=== PATIENT | male | born 1955 | race Caucasian/White ===

== ENCOUNTER 2016-09-01 19:51 | Inpatient (IN) | payer MEDICAID, OTHER ==
[~2016-09-01] VITALS: Ht 177.8 cm; Wt 116.9 kg
[~2016-09-01 19:51] MED LIST: ARIP15TA2 PO; Aspirin PO; CHOL10002 PO; FLUO20CA25 PO; FURO-129 PO; LISI-609 PO; METO25TA3 PO; PRAS10TA5 PO; SIMV40TA2 PO
--- NOTE | 2016-09-01 19:53 | ED.REPORT ---
HPI-Dyspnea / Wheezing Date of Service Sep 01, 2016 ED Provider: Boston MadrigalO. A 61 year old male with a history of hypertension, depression, suicidal ideation , and acute catatonic state presents to the ED via EMS with shortness of breath onset just prior to arrival. The patient is uncooperative and slow to answer questions, only additionally reporting anxiety and abdominal pain. EMS found him to be diaphoretic and tachycardic with O2 sats in the mid 90s. Nursing Notes Stated Complaint: SOB Nursing Notes Reviewed: Yes Allergies: Coded Allergies: clopidogrel (Verified Allergy, Intermediate, 12/05/13) Medical record quetiapine (Verified Allergy, Intermediate, 12/05/13) primary physician medical record rosuvastatin (Verified Allergy, Intermediate, 12/05/13) medical record simvastatin (Verified Allergy, Intermediate, 12/05/13) primary physician medical record codeine (Verified Allergy, Mild, 05/19/09) lisinopril (Verified Adverse Reaction, Severe, 12/05/13) Medical record Scheduled ([Aspirin]) 81 MG TAB.CHEW 81 MG PO DAILY Aripiprazole (Abilify) 15 Mg Tablet 30 MG PO DAILY Fluoxetine (Fluoxetine) 20 Mg Capsule 20 MG PO DAILY depression Furosemide (Lasix) 20 Mg Tablet 20 MG PO DAILY Lisinopril (Zestril) 5 Mg Tablet 5 MG PO DAILY Metoprolol Succinate ER (Toprol XL) 25 Mg Tablet.er 12.5 MG PO DAILY Prasugrel HCl (Effient) 10 Mg Tablet 5 MG PO DAILY Simvastatin (Zocor) 40 Mg Tablet 40 MG PO HS Scheduled PRN Cholecalciferol (Vitamin D3) 1,000 Unit Tablet 2,000 UNIT PO DAILY PRN PRN supplement vitamin D deficiency General Time Seen by MD: 19:53 Chief Complaint Shortness of breath Hx Obtained From: Patient, EMS Unable to Obtain Hx: Uncooperative Arrived By: Ambulance Onset Occurred: Just prior to arrival Symptom Duration: Since onset Associated with: Reports: Anxiety, Diaphoresis, Denies: Fever Pertinent Negative: Relieved by nothing Recent Healthcare: No recent doctor visit Past Medical History Past Medical History Major depressive disorder, with psychotic features Acute catatonic state Suicidal ideation Hypertension Past Surgical History None reported Smoking History Unknown if Ever Smoker Ambulatory Status Independent Review of Systems Unable to Obtain ROS Uncooperative Physical Exam Initial Vital Signs Vital Signs (First) Date Time Temp Pulse Resp B/P Pulse Ox O2 Delivery O2 Flow Rate FiO2 09/01/16 20:00 37.4 124 15 129/67 96 Room Air Initial VS: Reviewed Head / Eyes: Atraumatic, Normocephalic ENT: Conjunctiva normal, No scleral icterus Skin: Warm, Dry General/Constitutional: Awake, Alert Behavior: Positive: Uncooperative Appearance / Presentation: Positive: Obese Respiratory / Chest: Breath sounds NL, Breath sounds = bilat, No respiratory distress Cardiovascular: Regular rhythm, Heart sounds NL Heart Rate / Rhythm: Positive: Tachycardia NEUROLOGIC: Moves all four limbs equally, only minimally answering questions Unable to Evaluate: Positive: Uncooperative Interpretation & Diagnostics INFLUENZA NEGATIVE Lab Results Interpretation Result Diagram: 09/01/16199909/01/161999 Test 09/01/16 20:00 White Blood Count 14.5th/mm3 (3.8-10.1) Red Blood Count 5.56mil/mm3 (4.40-5.80) Hemoglobin 16.2g/dL (13.8-17.2) Hematocrit 45.0% (41.0-50.0) Mean Corpuscular Volume 80.9fL (81-100) Mean Corpuscular Hemoglobin 29.1pg (27.0-35.0) Mean Corpuscular Hemoglobin Concent 36.0% (32.0-37.0) Red Cell Distribution Width 12.9% (12.3-15.4) Platelet Count 194bil/L (150-400) Neutrophils (%) (Auto) 65.0% (40-74) Lymphocytes (%) (Auto) 19.1% (14-46) Monocytes (%) (Auto) 15.3% (4-12) Eosinophils (%) (Auto) 0.3% (0-5) Basophils (%) (Auto) 0.1% (0-3) Prothrombin Time 10.6sec (8.1-12.5) Prothromb Time International Ratio 0.99ratio D-Dimer 0.8mg/L (<0.50) Sodium Level 135mEq/L (134-144) Potassium Level 4.1mEq/L (3.5-5.2) Chloride Level 97mEq/L (97-108) Carbon Dioxide Level 17mmol/L (18-29) Blood Urea Nitrogen 17mg/dL (8-27) Creatinine 0.95mg/dL (0.76-1.27) Estimat Glomerular Filtration Rate 85mL/min (>59) Glucose Level 110mg/dL (60-99) Calcium Level 9.4mg/dL (8.5-10.1) Magnesium Level 2.1mg/dL (1.6-2.6) Total Bilirubin 1.1mg/dL (0.0-1.2) Aspartate Amino Transf (AST/SGOT) 71U/L (0-50) Alanine Aminotransferase (ALT/SGPT) 32U/L (0-44) Alkaline Phosphatase 83U/L (25-160) Troponin T 0.460ug/L (0.0-0.011) Pro-B-Type Natriuretic Peptide 867.8pg/mL (0-210) Total Protein 7.1g/dL (6.4-8.4) Albumin 4.5g/dL (3.4-5.0) Thyroid Stimulating Hormone (TSH) 1.240uIU/mL (0.450-4.500) ECG Interpretation ECG Interpretation: Sinus tachycardia rate 110 Abnormal R-wave progression, early transition Inferior infarct, old Time: 20:44 Interpreted by: ED physician ECG Interpretation: Sinus rhythm rate 94 Abnormal R-wave progression, early transition Inferior infarct, old Same as previous Time: 23:40 Interpreted by: ED physician X-Ray Chest Interpretation Chest Xray Interpretation: IMPRESSION: No acute cardiopulmonary disease. Dictated by: Nick Feliciano M.D. on 09/01/2016 at 20:21 View: Portable, 1 view Interpretation / Wet Read by: Interpret - Radiologist CT Head Interpretation IMPRESSION: No acute intracranial abnormalities. Dictated by: Nick Feliciano M.D. on 09/01/2016 at 21:07 Study: Head CT no contrast Interpretation / Wet Read by: Interpret - Radiologist Re-Eval/Medical Decision Med Decision/Clinical Course I have no idea what is wrong with Trae. He barely answers yes or no questions. He will sometimes whisper that he is at [facility]. He will tell me that he is not having any pain when I ask him to elaborate on what happened today he closed his eyes and turned over and face the opposite side of the room. From what I can gather he called some sort ask a nurse line. They called the medics. He was found to be tachycardic. He was also diaphoretic. He would not give the medics much information. He is not giving me anything whatsoever. His troponin is elevated. His EKG showed tachycardia with Q waves inferiorly. No STEMI. CT scan brain looks normal. I do not find any lateralizing neurologic deficits other than the fact that he cannot or will not talk to me. We are going to treat him with aspirin and beta blockers and heparin. I think he is asked to having a non-STEMI. Doubtful if he is having a stroke because his symptoms seemed to be under his own control. I say that because sometimes he will chat with people when he will not talk to me. Either way he needs to be admitted and this all needs to be sorted out. Re-Evaluation/Progress : Time of Eval: 20:51 Patient Status: Condition improved Re-Evaluation/Progress Note: Informed patient of lab, x-ray, and CT results, diagnosis, and plan for admit. Patient is writhing and glaring. He is oriented to place. It seems he called nursing services who called EMS. Consultation : Referral / Consult Name: Johan Jett MD Consulted With: Hospitalist Call Returned at: 23:36 Rn Hemo Dialysis: Agrees with eval, Agrees with plan, Accepts admit Counseled Regarding: Diagnosis, Lab results, Need for admission Discharge & Departure Impression: Primary Impression: Non-ST elevated myocardial infarction (non-STEMI) Additional Impressions: Aphasia Tachycardia Disposition: ADMITTED TO HOSPITAL Discharge Condition All VS Reviewed: Yes Condition: Stable Referrals: OTHER,PHYSICIAN (PCP) [facility] Karissaibmer Attestation Portions of this note were transcribed by No Jones. I, Dr. Villafuerte, personally performed the history, physical exam, and medical decision-making; I reviewed and confirmed the accuracy of the information in the transcribed note. Signed by: Delroy Saeed, 09/02/2016, 00:13 copies to: [facility] Micah Villafuerte DO Sep 01, 2016 19:53 NO JONES Sep 01, 2016 20:21
[2016-09-01 20:00] VITALS: BP 129/67; PULSE 124; RESP 15; O2SAT 96
[2016-09-01] MEDS ORDERED: 0.9% Sodium Chloride 1,000 ML IV ONE (20:00)
[2016-09-01 20:07] LABS: BASOPHILS % (AUTO) 0.1 % (0-3); EOSINOPHILS % (AUTO) 0.3 % (0-5); MONOCYTES % (AUTO) 15.3 % (4-12); Mean Corpuscular Hemoglobin 29.1 pg (27.0-35.0); Mean Corpuscular Volume 80.9 fL (81-100); Platelet Count 194 bil/L (150-400)
[2016-09-01 20:25] LABS: D-DIMER 0.8 mg/L (<0.50); INR 0.99 ratio
--- NOTE | 2016-09-01 20:27 | DRSVH ---
PROCEDURE: X-RAY CHEST ONE VIEW, PORTABLE ([id number]) INDICATIONS: 61 year-old male with dyspnea. TECHNIQUE: One view of the chest was acquired. COMPARISON: [facility], , CHEST 1VW (PORTABLE), 08/18/2010, 13:34. formerly [facility], RG, CHEST 1VW (PORTABLE), 02/21/2006, 13:44. [facility], , CHEST 1VW (PORTABLE), , 13:48. FINDINGS: Surgical changes and devices: None. Lungs and pleura: No pleural effusions or pneumothorax. Lungs are clear. Mediastinum: Mediastinal contours appear normal. Heart size is normal. Bones and chest wall: No suspicious bony lesions. Overlying soft tissues appear unremarkable. IMPRESSION: No acute cardiopulmonary disease. Dictated by: Nick Feliciano M.D. on 09/01/2016 at 20:21 Approved by: Nick Feliciano M.D. on 09/01/2016 at 20:22
[2016-09-01 20:28] LABS: Magnesium 2.1 mg/dL (1.6-2.6)
[2016-09-01 20:36] LABS: TROPONIN T 0.46 ug/L (0.0-0.011)
--- NOTE | 2016-09-01 21:14 | DRSVH ---
PROCEDURE: CT BRAIN WITHOUT CONTRAST ([id number]) INDICATIONS: 61 year-old male with altered mental status. TECHNIQUE: Noncontrast 4.5 mm thick angled axial sections acquired from the foramen magnum to the vertex, with c oronal reformats. COMPARISON: [facility], CT, BRAIN W/O CONTRAST, 08/18/2010, 14:57. [facility], CT, BRAIN W/O CONTRAST, 02/21/2006, 13:05. FINDINGS: Image quality: Excellent. CSF spaces: Basal cisterns are patent. No extra-axial fluid collections. Ventricles are normal in size and shape. Brain: No midline shift. No intracranial masses or hemorrhage. Cadena-white matter interface is norm al. Skull and face: Calvarium and visualized facial bones are intact, without suspicious lesions. Sinuses: Visualized sinuses and mastoids are clear. IMPRESSION: No acute intracranial abnormalities. Dictated by: Nick Feliciano M.D. on 09/01/2016 at 21:07 Approved by: Nick Feliciano M.D. on 09/01/2016 at 21:08
[2016-09-01] MEDS ORDERED: MeTOProlol 1 mg/mL 5 mL Inj IVPUSH SCH (23:20)
[2016-09-01 23:39] VITALS: BP 157/51; PULSE 116; RESP 12; O2SAT 97
[2016-09-01 23:45] VITALS: BP 127/57; PULSE 93; RESP 12; O2SAT 96
[2016-09-02] VITALS (11 sets, daily range): BP systolic 106–153; BP diastolic 57–101; PULSE 72–111; RESP 12–22; O2SAT 93–98
[2016-09-02] MEDS: Heparin 25K Unit/500mL 0.45 NS 25,000 UNIT in IV Premix 1 EACH IV SCH ×2 (00:24→21:09)
[2016-09-02] MEDS: Heparin 5,000 Unit/mL Inj IVPUSH PRN ×3 (00:24→15:22)
[2016-09-02] MEDS ORDERED: Senna-Docusate 8.6-50 mg Tablet PO PRN (00:35)
[2016-09-02] MEDS ORDERED: Polyethylene Glycol (PEG) 17 Gm Powder PO PRN (00:35)
[2016-09-02] MEDS ORDERED: Ondansetron 2 mg/mL 2 mL Inj IVPUSH PRN (00:35)
--- NOTE | 2016-09-02 01:54 | NUR ---
admit: pt arrived to floor via ER gurney. pt mostly non responsive, will answer some yes or no questions. pt appears to be uncomfortable, but denies pain. pt with labored breathing, restless in bed, appeared to be diaphoretic. STAT EKG done. Nitro given, 2LO2 NC place. pt is resting in bed at this time. Heparin gtt infusing at 1000units/hr (started in ER). will continue to monitor.
[2016-09-02 02:36] LABS: BASOPHILS % (AUTO) 0.2 % (0-3); EOSINOPHILS % (AUTO) 0.2 % (0-5); MONOCYTES % (AUTO) 14.5 % (4-12); Mean Corpuscular Hemoglobin 29.4 pg (27.0-35.0); NEUTROPHILS % (AUTO) 72.8 % (40-74); Platelet Count 156 bil/L (150-400)
--- NOTE | 2016-09-02 03:03 | PCM.HPMED ---
Subjective Date of Service Sep 02, 2016 Primary Provider: Admitting Physician: Johan Jett MD Primary Care Physician: Other,Physician Attending Physician: Johan Jett MD Chief Complaint: Shortness of breath History of Present Illness: Patient is a 61-year-old male with hypertension, major depressive disorder with history of suicidal ideation presenting with shortness of breath. The little history obtained was primarily through the ED physician as the patient offers minimal insight about the events leading up to his hospitalization. Not much can be elicited from him. When I initially saw the patient he was standing in the exam room and requesting to use the restroom. A urinal was provided and the patient was able to get back into bed without issue. Per ED physician, the patient had called a nurse triage line with complaints of shortness of breath. The patient was reportedly quiet on the line and not answering questions, which prompted the triage nurse to summon EMS, who found the patient diaphoretic and tachycardic. At time of my visit, the patient indicated that he called the nurse triage line due shortness of breath, which he reports stemmed from extreme stress, though he will not elaborate. He denies chest pain or any other type pain; no fevers or chills. Shortness of breath has resolved at the time of my visit. He otherwise did not offer much else in terms of history. Of note, the patient was hospitalized in 2013 for depression with psychosis requiring inpatient treatment. Troponin elevated at 0.460. EKG shows sinus tachycardia with HR 110, no ST- elevation or depressions. Vitals in the ED: temp 37.4, HR 93, RR 12 satting 96% on room air, BP 125/57. Other notable labs: D-dimer 0.8, Pro-BNP 867, WBC 14.5. CT brain negative. CT chest angiogram without evidence of pulmonary embolism. Review of Systems: Unable to obtain in entirety due to uncooperative patient Allergies Coded Allergies: clopidogrel (Verified Allergy, Intermediate, 12/05/13) Medical record quetiapine (Verified Allergy, Intermediate, 12/05/13) primary physician medical record rosuvastatin (Verified Allergy, Intermediate, 12/05/13) medical record simvastatin (Verified Allergy, Intermediate, 12/05/13) primary physician medical record codeine (Verified Allergy, Mild, 05/19/09) lisinopril (Verified Adverse Reaction, Severe, 12/05/13) Medical record Home Medications ASA 81mg daily Lisinopril 2.5mg daily Simvastatin 40mg QHS Fluoxetine 40mg QHS Tamsulosin 0.4mg daily Metoprolol 12.5mg daily Lasix 20mg daily PMH Hypertension Depression History of catatonia Surgical History Unable to obtain Family History Unable to obtain Social History Hx Tobacco Use: No Smoking Status: Unknown if Ever Smoker Exam Vital Signs Vital Sign - Last Date Time Temp Pulse Resp B/P Pulse Ox O2 Delivery O2 Flow Rate FiO2 09/02/16 01:49 98 106/69 09/02/16 01:13 37.1 16 96 Room Air Exam General: No acute distress, well-developed, well-nourished. Not appropriately interactive. Slow to respond or does not respond altogether. HEENT: Normocephalic, atraumatic. External ears without defect. Pupils equal, round, and reactive to light. Anicteric sclerae, moist conjunctivae, and no lid lag. Oropharynx free of erythema and cobble stoning with moist mucosa. Neck: Supple. No lymphadenopathy or thyromegaly. Cardiovascular: Regular rate and rhythm with no murmurs, rubs, or gallops appreciated Pulmonary: Clear to auscultation bilaterally with no crackles, wheezes, or rhonchi. Normal respiratory effort with no use of accessory muscles. Abdomen: Decreased bowel tones. Obese, soft, nontender, nondistended. Extremities: No clubbing, cyanosis, edema, or lymphadenopathy appreciated. Skin: Normal temperature, turgor, and texture; no rash, ulcers, or subcutaneous nodules appreciated. Neurological: Cranial nerves grossly intact. Psychiatric: Strange and ambivalent affect. Alert. Lab and Diagnostics Result Diagram: 09/01/16199909/01/161999 X-Rays, CTs and MRIs Date of Service: 09/01/162055 PROCEDURE: CT BRAIN WITHOUT CONTRAST ([id number]) INDICATIONS: 61 year-old male with altered mental status. TECHNIQUE: Noncontrast 4.5 mm thick angled axial sections acquired from the foramen magnum to the vertex, with coronal reformats. COMPARISON: [facility], CT, BRAIN W/O CONTRAST, 08/18/2010, 14:57. [facility], CT, BRAIN W/O CONTRAST, 02/21/2006, 13:05. FINDINGS: Image quality: Excellent. CSF spaces: Basal cisterns are patent. No extra-axial fluid collections. Ventricles are normal in size and shape. Brain: No midline shift. No intracranial masses or hemorrhage. Cadena-white matter interface is normal. Skull and face: Calvarium and visualized facial bones are intact, without suspicious lesions. Sinuses: Visualized sinuses and mastoids are clear. IMPRESSION: No acute intracranial abnormalities. Dictated by: Nick Feliciano M.D. on 09/01/2016 at 21:07 Approved by: Nick Feliciano M.D. on 09/01/2016 at 21:08 ---- Exam date: 09/01/2016 CT PULMONARY ANGIOGRAM CONCLUSION: No evidence of pulmonary embolism or dissection. Prominent coronary artery calcifications. Assessment & Plan Patient is a 61-year-old male with hypertension, major depressive disorder with history of suicidal ideation presenting with shortness of breath and admitted for NSTEMI. 1. Acute NSTEMI. Present on admission. Active -Patient without complaints of chest pain but has risk factors including hypertension and presumed dyslipidemia as he is on a statin -Troponin 0.460. Continue to trend -Heparin gtt cardiac protocol -Continue ASA, metoprolol -Nitroglycerin SL and morphine PRN chest pain -Echocardiogram 2. Acute dyspnea. Present on admission. Resolved -Essentially resolved at time of visit -Uncertain etiology. Possibly related to #1, or could be related to stress and anxiety -Supplemental oxygen PRN -Follow clinically 3. Psychomotor retardation. Present on admission. Active -Patient has slow speech and motor movements -CT head negative for acute process -Possibly secondary to major depression as this was an issue in the past -Continue home antidepressant -Urine drug tox screen -Consider psych evaluation 4. Acute leukocytosis. Present on admission. Active -WBC 14.5 -No obvious signs of infection -Continue to monitor clinically. Follow with CBC 5. Dyslipidemia, chronic. Present on admission -Continue home dose statin 6. Hypertension, chronic. Present on admission -Continue home dose lisinopril, Lasix Patient Status: Patient is admitted under inpatient status with expected length of stay greater than 2 midnights due to severity of presenting symptoms, risk of adverse event, and complexity of treatment plan. VTE Prophylaxis: Other (Heparin gtt) Resuscitation Status: CPR: Attempt Resuscitation Attending Statement The patient was seen and examined together with Dr. Ku on 09/01 and I agree with the history, exam and plan as outlined in the note above. Cardiology have not yet been consulted. King Ku DO Sep 02, 2016 02:31 Johan Jett MD Sep 02, 2016 03:13
[2016-09-02 03:23] LABS: COLOR,URINE YELLOW (YELLOW)
[2016-09-02 03:24] LABS: APPEARANCE,URINE CLEAR (CLEAR,HAZY); OCCULT BLOOD,URINE LARGE (NEGATIVE); UROBILINOGEN,URINE NORMAL (NORMAL)
[2016-09-02] MEDS ORDERED: LISI2.5T PO (07:51)
[2016-09-02] MEDS ORDERED: FLUO20CA25 PO (07:51)
[2016-09-02] MEDS ORDERED: ASPI-973 PO (07:51)
[2016-09-02] MEDS ORDERED: TAMS0.4C98 PO (07:51)
[2016-09-02] MEDS ORDERED: NITR0.4T6 SL (07:51)
--- NOTE | 2016-09-02 08:12 | NUR ---
meds sent to pharmacy/med rec Pt has bubble pack and bottle of nitro form home, sent meds to pharmacy, slip #[phone]. Med rec updated based on bubble pack meds and pill bottle. [place] [facility] was faxed by primary RN to obtain med list, awaiting fax. Call to PCP Dr. Chidi Rodrigues [phone], they will also fax a med list. Addendum: 09/02/16 at 0831 by CLEMENT DWYER med list from Dr. Rodrigues office obtained and updated to reflect
[2016-09-02] MEDS ORDERED: MYCC TOP (08:30)
[2016-09-02] MEDS ORDERED: ARIP5TAB20 PO (08:30)
[2016-09-02] MEDS ORDERED: HYDR99LO TP (08:30)
--- NOTE | 2016-09-02 09:01 | NUR ---
Past History At the permission of pt close contact Eve Pito was contacted for more information on pt. Mrs Sheldon was able to provide pt is Bipolar, on pysc meds but is non compliant. Pt had lunch Monday with Mrs Sheldon at which Mrs Sheldon was concerned as pt was, "like in a catatonic state, never said a word." Mrs Sheldon also provided that two weeks ago pt had a "heart problem" at which pt told Mrs Sheldon, that pt took 3 nitroglycerin and symptoms resolved. It was also learned that pt is scheduled for a procedure Monday at [facility] to remove a cyst possibly on pt's liver. A call at the request of pt, was made to pt's brother Francisco, message was left. Will continue to monitor.
--- NOTE | 2016-09-02 10:01 | DRSVH ---
PROCEDURE: CT ANGIO CHEST PULMONARY EMBOLISM ([id number]) INDICATIONS: dyspnea, tachycardia, nonstemi TECHNIQUE: After the administration of intravenous contrast, 2 mm thick sections acquired from the pulmonary api michael to the posterior costophrenic angles. 3-dimensional maximum intensity projection (MIP) coronal a nd sagittal reformats were then acquired through the thorax. For radiation dose reduction, the follo wing was used: automated exposure control, adjustment of mA and/or kV according to patient size. COMPARISON: [facility], CT, CT ABD PELVIS W&WO CON IVP, 08/01/2016, 16:44. [facility], CR, XR CHEST 1VW (PORTABLE), 09/01/2016, 20:01. FINDINGS: Image quality: Mild respiratory motion artifacts. Pulmonary arteries: Pulmonary arteries are normal in size, and demonstrate no intraluminal filling d efects to suggest central pulmonary embolism. Lungs and pleura: Lungs are clear. No pleural effusions or pneumothorax. Central and peripheral ai rways are patent. Mediastinum: Heart size is normal, without pericardial effusion. Mild coronary artery calcification . No mediastinal or hilar adenopathy. Thoracic aorta is normal in caliber and enhancement. Esophagu s is normal in caliber, without hiatal hernia. Bones and chest wall: No suspicious bony lesions. Ribs and thoracic spine appear intact throughout. Thyroid gland is normal. No axillary or supraclavicular adenopathy. Abdomen: Visualized upper abdominal solid organs appear normal in the early arterial phase of enhanc ement. There are gallstones. There is a 1.6 cm low-density nodule in the superior pole left kidney c onsistent with a renal cyst. IMPRESSION: 1. No central pulmonary embolism. 2. Mild coronary artery calcification consistent with atherosclerosis. 3. Cholelithiasis. 4. A 1.6 cm cyst in the superior pole of the left kidney. No significant discrepancy with the warehouse supervisor 3rd shift radiology preliminary report. Dictated by: Colin Zepeda M.D. on 09/02/2016 at 9:27 Transcribed by: TYRONE on 09/02/2016 at 10:00 Approved by: Colin Zepeda M.D. on 09/02/2016 at 15:25
--- NOTE | 2016-09-02 10:03 | NUR ---
Social Work: Screening Data: Pt is a 61 y/o male admitted for non stemi, aphasia tachycardia. Pt's PCP is not listed, pt's insurance is [employer] [place] blind/disabled. EMR reviewed. Pt has history of depression and psychosis including inpt treatment. Pt discussed in rounds, states that they plan to have psych consult on this pt to evaluation. No further [employer] needs anticipated at this time. [employer] will continue to follow if needs arise. Assessment: Pt who is independent at baseline. MH history. Plan: Pt will d/c home via POV when medically stable. MD states that they plan to have psych consult on this pt to evaluation. No further [employer]IC needs anticipated at this time. [employer] will continue to follow if needs arise. MK Adame
--- NOTE | 2016-09-02 12:21 | DRSVH ---
[facility] [address] [place] [address] Echocardiogram Report Name: TYRESE SANTILLAN WStudy Date: 09/02/2016 Height: 70 in Hospital Exam Location: [facility] Weight: 255 lb Gender: Male BSA: 2.3 m2 : 1955 Age: 61 yrs BP: 153/101 mmHg Reason For Study: ELEVATED TROPONIN, SOB Ordering Physician: Performed By: Rin Guzman Referring Physician: DR. PEDRAZA Interpretation Summary Left ventricular wall thickness is mildly increased. The left ventricular ejection fraction is grossly normal.There are no obvious focal wall motion abnormalities noted but poor endocardial definition reduces the sensitivity for the detection of such. Assessment of diastolic parameters indicates normal left ventricular diastolic function and normal filling pressures. The right ventricle grossly appears normal in size with probable normal systolic function. Both atria are normal in size. There is no significant valvular heart disease. The aortic root is normal size. Procedure: A two-dimensional transthoracic echocardiogram with color flow and Doppler was performed. Image quality is poor. A contrast injection of Definity was performed to improve assessment of LV function. Contrast was injected into an intravenous site in the left arm. A total of 4 cc of contrast was given. There is no prior echocardiogram noted for this patient. The patient was in normal sinus rhythm during the exam. Left Ventricle: The left ventricle is normal in size. Left ventricular wall thickness is mildly increased. The left ventricular ejection fraction is grossly normal. There are no obvious focal wall motion abnormalities noted but poor endocardial definition reduces the sensitivity for the detection of such. Assessment of diastolic parameters indicates normal left ventricular diastolic function and normal filling pressures. Right Ventricle: The right ventricle grossly appears normal in size with probable normal systolic function. Atria: Both atria are normal in size. There is no Doppler evidence for an interatrial shunt. Mitral Valve: The mitral valve is grossly normal. There is trace mitral regurgitation. Aortic Valve: The aortic valve is not well visualized. The aortic valve opens well. The aortic valve is trileaflet. No aortic regurgitation is present. Tricuspid Valve: The tricuspid valve leaflets are thin and pliable. There is a trace or physiologic amount of tricuspid regurgitation. Pulmonary artery pressures cannot be estimated because of the lack of a measurable TR jet velocity. Pulmonic Valve: The pulmonic valve is not well visualized. There is no pulmonic valvular regurgitation. There is no significant valvular heart disease. Great Vessels: The aortic root is normal size. The dimensions of the ascending aorta are normal. The pulmonary is not well visualized. The inferior vena cava was not well visualized. The IVC has a measurement of 17 mm. Pericardium/ Pleura There is no pericardial effusion. There is no pleural effusion. MMode/2D Measurements & Calculations LVIDd: 4.2 cm LA dimension: 3.9 cm RA long axis LVOT diam LVIDs: 2.8 cm FS: 31.7 % LA A2 area: 19.0 cm RA area AoV Opening EPSS: 0.28 cm LA A4 area: 19.6 cm IVSd: 1.2 cm LA length (vol): 5.3 cm: 17.9 cm Ao root diam LVPWd: 1.1 cm LA vol: 60.2 ml RA vol LA vol index : 58.8 ml asc Aorta RA Diam: 3.3 cm : 25.4 mm2 IVC diam: 1.7 cm LV solano. diameter/BSA LV sys. diameter/BSA (cm/m^2): 1.8 (cm/m^2): 1.2 Doppler Measurements & Calculations Ao V2 max MV E max lalit MV E/A: 1.1 PA V2 max : 183.0 cm/sec : 100.1 cm/sec Med Peak E' Lalit : 138.3 cm/sec Ao max PG MV A max lalit PA mean PG : 13.4 mmHg : 90.4 cm/sec E/E' med: 12.9 Ao mean PG MV P1/2t: 72.7 msec Lat Peak E' Lalit PA Accel Time : 0.08 sec LVOT Max Lalit E/E' lat: 15.9 : 130.2 cm/sec E/e' average: 14.4 Pulm A Revs Dur MARLA(I,D): 2.5 cm sev ratio MV A dur: 0.12 sec MV dec time MV P1/2t max allit Ao V2 mean LV V1 max PG : 0.25 sec : 117.2 cm/sec MVA(P1/2t): 3.0 cm2 Ao V2 VTI: 29.9 cm LV V1 VTI MARLA(V,D): 2.3 cm2 : 23.5 cm PA V2 mean MARLA indexed to BSA Pulm A Revs Dur - MV A : 109.9 cm/sec (cm^2/m^2): 1.1 Dur: -0.01 msec Reading Physician:FARIDA
[2016-09-02] MEDS: LORazepam 1 mg Tablet PO SCH ×3 (12:58→19:51)
--- NOTE | 2016-09-02 16:38 | PCM.PNMED ---
Subjective Date of Service Sep 02, 2016 Subjective denies any chest pain or discomfort at this time Exam Vital Signs Vital Sign - Last Date Time Temp Pulse Resp B/P Pulse Ox O2 Delivery O2 Flow Rate FiO2 09/02/16 13:20 36.9 86 20 146/87 96 Room Air 09/02/16 06:14 1.00 Intake and Output 09/01/16 09/01/16 09/02/16 Cumulative From/Thru 15:00 23:00 07:00 09/01/16 20:00 - 09/02/16 06:54 Intake Total 0 ml 0 ml Output Total 400 ml 400 ml Balance -400 ml -400 ml Intake Oral 0 ml 0 ml Output Urine Total 400 ml 400 ml # Bowel Movements 0 0 Exam General: No acute distress. Not appropriately interactive. Slow to respond or does not respond altogether. HEENT: Normocephalic, atraumatic. Anicteric sclerae Neck: Supple. Full ROM Cardiovascular: Regular rate and rhythm with no murmurs, rubs, or gallops appreciated Pulmonary: Clear to auscultation bilaterally with no crackles, wheezes, or rhonchi. chest wall normal Abdomen: Soft, nontender, nondistended, +bs Extremities: No clubbing, cyanosis, edema, or lymphadenopathy appreciated. Skin: Normal temperature, turgor, and texture; no rash, ulcers, or subcutaneous nodules appreciated. Neurological: Cranial nerves grossly intact. Psychiatric: Ambivalent affect. Alert. IVs and Medications Medications Reviewed: Medications were reviewed in detail Lab and Diagnostics Result Diagram: 09/02/1630 09/02/16 0208 X-Rays, CTs and MRIs Date of Service: 09/01/162055 PROCEDURE: CT BRAIN WITHOUT CONTRAST ([id number]) INDICATIONS: 61 year-old male with altered mental status. TECHNIQUE: Noncontrast 4.5 mm thick angled axial sections acquired from the foramen magnum to the vertex, with coronal reformats. COMPARISON: [facility], CT, BRAIN W/O CONTRAST, 08/18/2010, 14:57. [facility], CT, BRAIN W/O CONTRAST, 02/21/2006, 13:05. FINDINGS: Image quality: Excellent. CSF spaces: Basal cisterns are patent. No extra-axial fluid collections. Ventricles are normal in size and shape. Brain: No midline shift. No intracranial masses or hemorrhage. Cadena-white matter interface is normal. Skull and face: Calvarium and visualized facial bones are intact, without suspicious lesions. Sinuses: Visualized sinuses and mastoids are clear. IMPRESSION: No acute intracranial abnormalities. Dictated by: Nick Feliciano M.D. on 09/01/2016 at 21:07 Approved by: Nick Feliciano M.D. on 09/01/2016 at 21:08 ---- Exam date: 09/01/2016 CT PULMONARY ANGIOGRAM CONCLUSION: No evidence of pulmonary embolism or dissection. Prominent coronary artery calcifications. Assessment & Plan 61-year-old male with hypertension, major depressive disorder with history of suicidal ideation presenting with shortness of breath and admitted for NSTEMI. # Acute NSTEMI. Present on admission. currently without CP - cardiology consulted this am. will f/u w/ recs - Continue ASA, metoprolol, statin - f/u pending Echo # Acute dyspnea. Present on admission. Resolved - Essentially resolved at time of visit - Uncertain etiology. Possibly related to NSTEMI noted above, or could be related to stress and anxiety - Follow clinically # Acute catatonia and psychomotor retardation. Present on admission. Active - ? acute medication withdrawal vs psychiatric deterioration - psychiatry consulted. will f/u w/ recs # Acute leukocytosis. Present on admission. Improving - No obvious signs of infection - f/u # Dyslipidemia, chronic. Present on admission - Continue statin # Hypertension, chronic. Present on admission - Continue lisinopril, Lasix - f/u w/ cardiology recs Dispo: 2-3 days VTE Prophylaxis: Other (Heparin gtt) Resuscitation Status: CPR: Attempt Resuscitation Time spent 40 min Geronimo Beaulieu Sep 02, 2016 16:38
--- NOTE | 2016-09-02 17:00 | PCM.CHPCAR ---
Consult Subjective Date of service Sep 02, 2016 Date of admit Sep 02, 2016 at 00:01 Provider Requesting Consult Primary Care Physician Primary Care Provider: Other,Physician Chief Complaint NSTEMI History of Present Illness 61 year old male with past medical history of CAD status post 5 stent placement possibly 5 years ago, bipolar disorder, SI, SOB and hypertension. Patient reportedly called nurse triage lines complaining of shortness of breath and becoming minimally verbal. EMS arrived to patient's home where he is reported to be diaphoretic and tachycardic. At time of interview patient mostly nonverbal though denies active chest pain per patient's friend also present at time of interview states that patient had one episode of chest pain 2 weeks prior requiring the administration of home nitroglycerin with relief further stating patient has been noncompliant with outpatient medications. Cardiology consulted for elevated troponin levels. Review of Systems Review of Systems Unable to obtain review of systems secondary to patient's communication being mostly nonverbal. Problem List: # NSTEMI # CAD s/p 5 stent placement approximately 5 years ago # HTN # Psychosis PMH Past Medical History Reported CAD Hypertension Depression History of catatonia Past Surgical History Unable to obtain Scheduled Aripiprazole (Aripiprazole) 5 Mg Tablet 5 MG PO DAILY (Reported) Aspirin (Aspirin) 81 Mg Tablet 81 MG PO DAILY (Reported) Fluoxetine (Fluoxetine) 20 Mg Capsule 40 MG PO HS (Reported) Furosemide (Lasix) 20 Mg Tablet 20 MG PO DAILY Lisinopril (Lisinopril) 2.5 Mg Tablet 2.5 MG PO DAILY (Reported) Metoprolol Succinate ER (Toprol XL) 25 Mg Tablet.er 12.5 MG PO DAILY Simvastatin (Zocor) 40 Mg Tablet 40 MG PO HS Tamsulosin (Flomax) 0.4 Mg Capsule 0.4 MG PO QPM (Reported) Scheduled PRN Hydrocortisone (Anti-Itch) 1 % Lotion 1 APPLIC TP BID PRN PRN For Itching ( Reported) apply twice daily as needed for itchy skin Nitroglycerin SL (Nitroglycerin SL) 0.4 Mg Tab.subl 0.4 MG SL Q5MIN PRN PRN For Chest Pain (Reported) 1 tab under the tongue every 5 minutes as needed for chest pain, after 3rd tab call 911 Nystatin (Nystatin) 60 Applic/15 Gm Cream 1 APPLIC TOP BID PRN PRN rash ( Reported) apply small ammount to itchy skin twice daily as needed Discontinued Medications ([Aspirin]) 81 MG TAB.CHEW 81 MG PO DAILY Aripiprazole (Abilify) 15 Mg Tablet 30 MG PO DAILY Cholecalciferol (Vitamin D3) 1,000 Unit Tablet 2,000 UNIT PO DAILY PRN PRN supplement vitamin D deficiency Fluoxetine (Fluoxetine) 20 Mg Capsule 20 MG PO DAILY depression Lisinopril (Zestril) 5 Mg Tablet 5 MG PO DAILY Prasugrel HCl (Effient) 10 Mg Tablet 5 MG PO DAILY Current Inpatient Medications Current Medications Metoprolol Tartrate 5 mg Q5MIN IVPUSH Last administered on 09/01/16 23:38; Admin Dose 5 MG; Start 09/01/16 at 23:20 Heparin Sodium (Porcine) Per Protocol for a... PRN PRN IVPUSH Last administered on 09/02/16 15:22; Admin Dose 5,000 UNIT; Start 09/01/16 at 23:55 Ondansetron HCl 4-8 mg prn nausea Q4 PRN IVPUSH; Start 09/02/16 at 00:35 Senna 1 tablet BID PRN PO; Start 09/02/16 at 00:35 Polyethylene Glycol 17 gm DAILY PRN PO; Start 09/02/16 at 00:35 Nitroglycerin 0.4 mg Q5MIN PRN SL Last administered on 09/02/16 01:39; Admin Dose 0.4 MG; Start 09/02/16 at 00:35 Morphine Sulfate 1-5 mg prn pain not relie... Q5M PRN IVPUSH; Start 09/02/16 at 00:35 Lorazepam 1 mg TID PO Last administered on 09/02/16 15:00; Admin Dose 1 MG; Start 09/02/16 at 12:45 Aripiprazole 30 mg DAILY PO; Start 09/03/16 at 08:30 Metoprolol Tartrate 25 mg BID PO Last administered on 09/02/16 15:00; Admin Dose 25 MG; Start 09/02/16 at 14:20 Aspirin 81 mg DAILY PO; Start 09/03/16 at 08:30 Allergies: Coded Allergies: clopidogrel (Verified Allergy, Intermediate, 12/05/13) Medical record quetiapine (Verified Allergy, Intermediate, 12/05/13) primary physician medical record rosuvastatin (Verified Allergy, Intermediate, 12/05/13) medical record simvastatin (Verified Allergy, Intermediate, 12/05/13) primary physician medical record codeine (Verified Allergy, Mild, 05/19/09) lisinopril (Verified Adverse Reaction, Severe, 12/05/13) Medical record Family History Family History Unable to obtain from the patient. Brother is healthy. Social History Hx Tobacco Use: No Smoking Status: Unknown if Ever Smoker Exam Vital Signs Vital Sign - Last Date Time Temp Pulse Resp B/P Pulse Ox O2 Delivery O2 Flow Rate FiO2 09/02/16 13:20 36.9 86 20 146/87 96 Room Air 09/02/16 06:14 1.00 Intake and Output 09/01/16 09/01/16 09/02/16 Cumulative From/Thru 15:00 23:00 07:00 09/01/16 20:00 - 09/02/16 06:54 Intake Total 0 ml 0 ml Output Total 400 ml 400 ml Balance -400 ml -400 ml Intake Oral 0 ml 0 ml Output Urine Total 400 ml 400 ml # Bowel Movements 0 0 Objective General: Patient standing in hospital room pacing with distant muted affect will only responded to questions with one word yes or no. HEENT: Normocephalic, atraumatic. External ears without defect. Neck: No jugular venous distension. No bruits. Cardiovascular: Unable to auscultate cardiac tones secondary to patient psychological discomfort Pulmonary: Normal respiratory effort with no use of accessory muscles. Extremities: No clubbing, cyanosis, edema Neurological: Cranial nerves grossly intact. Normal muscle strength, tone, and bulk. No known gait impairment. Psychiatric: Flat affect, answers questions in one word responses only. Lab and Diagnostics Result Diagram: 09/02/16 0730 09/02/16 0208 12-lead ECG Sinus rhythm with abnormal R-wave progression early transition. Old Inferior infarct Additional Diagnostics: Echocardiogram Report Interpretation Summary: Left ventricular wall thickness is mildly increased. The left ventricular ejection fraction is grossly normal.There are no obvious focal wall motion abnormalities noted but poor endocardial definition reduces the sensitivity for the detection of such. Assessment of diastolic parameters indicates normal left ventricular diastolic function and normal filling pressures. The right ventricle grossly appears normal in size with probable normal systolic function. Both atria are normal in size. There is no significant valvular heart disease. The aortic root is normal size. CT BRAIN WITHOUT CONTRAST: IMPRESSION: No acute intracranial abnormalities. Dictated by: Nick Feliciano M.D. CT ANGIO CHEST PULMONARY EMBOLISM: IMPRESSION: 1. No central pulmonary embolism. 2. Mild coronary artery calcification consistent with atherosclerosis. 3. Cholelithiasis. 4. A 1.6 cm cyst in the superior pole of the left kidney. No significant discrepancy with the shift stacker radiology preliminary report. X-RAY CHEST ONE VIEW, PORTABLE: IMPRESSION: No acute cardiopulmonary disease. Dictated by: Nick Feliciano M.D. Assessment & Plan Assessment 61 yo M h/o significant untreated mental illness, known prior CAD s/p prior stents, HTN, and non-compliance admitted with NSTEMI. # NSTEMI. Due to severe mental illness, patient's story is difficult to obtain. But from friend and family, it appears that patient was having chest pain two weeks ago. Yesterday, he was having diaphoresis and dyspnea when he sought medical attention. Patient's clinical symptoms suggestive of acute coronary syndrome and the patient's troponin also elevated which confirms NSTEMI. ECG doesn't know show bony STEMI. ECHO 09/02/2016 showed no focal wall motion abnormalities, though the study was somewhat limited due to difficulty with visualization. I spent significant time educating the patient, patients brother and family, and psychiatrist about the patient's condition and answered their questions. Given history of non-compliance, I would recommend doing medical management for the time being and consider cath if symptoms persist and the patient can be reliably given his medications. Another complicating factor is that he is allergic to clopidogrel and to some statins. Plan: - Aspirin 81 mg daily - Start atorvastatin 10 mg at bedtime. Will keep an eye on allergy and side effects given patient rosuvastatin and simvastatin listed as allergy - Start Metoprolol tartrate 25 mg twice a day - Continue heparin drip # HTN: BP well controlled with above medications. # Depression/bipolar/psychosis: history of suicidal ideation. Patient came in not taking any medications. He clearly has flat affect and it is unclear how much insight the patient has into his cardiac illness. Will defer mental healthy management to psychiatry. VTE Prophylaxis: Other (Heparin gtt) Resuscitation Status: CPR: Attempt Resuscitation Attending Statement I saw, examined, and evaluated the patient with Dr. Gray eMnon on 09/02/2016 and agree with the note as above along with my edits. GRAY MENON DO Sep 02, 2016 15:51 Erickson Pond MD Sep 02, 2016 17:22
--- NOTE | 2016-09-02 18:06 | NUR ---
Final Inspector Movement Assembly Per family pt saw Dr Chidi Rodrigues in May 2016, at which pt was prescribed Nitroglycerin.
--- NOTE | 2016-09-02 18:07 | NUR ---
Mentation Pt was mostly nonverbal with the exception of yes/no most of the day. Psych did eval and prescribed Ativan and Abilify scheduled, for bipolar disorder. There was a marked difference in pt, able to complete a sentence, still has delayed response, and per family this is normal for pt. Pt did perked up with brother's arrived, and appeared to more relaxed while brother's in the room. Pt currently eating dinner, call light within reach, bed low and locked, intentional rounding.
[2016-09-03] VITALS (7 sets, daily range): BP systolic 108–147; BP diastolic 68–86; PULSE 68–85; RESP 16–20; O2SAT 94–97
[2016-09-03] MEDS: Heparin 5,000 Unit/mL Inj IVPUSH PRN ×3 (04:56→17:52)
--- NOTE | 2016-09-03 05:30 | CONS ---
[address] [address] CONSULTATION REPORT PATIENT: TYRESE SANTILLAN : 1955 MR#: [id number] ADMIT: 09/02/2016 JOB ID: [id number] DATE OF SERVICE: IDENTIFYING DATA: The patient is a 61-year-old male admitted with hypertension, major depressive disorder and history of suicidal ideation with shortness of breath. REFERRAL INFORMATION: The patient is referred to psychiatry due to presentation of catatonia. CHIEF COMPLAINT: "Not taking medication." HISTORY OF PRESENT ILLNESS: The patient is unable to provide any meaningful current history of present illness. However the patient's family reports that he was doing reasonably well in the few days prior to his myocardial infarction. Review of records indicates that he has been hospitalized at [facility] in February 2005, January 2006, July 2010 and November 2013. He has typically been treated with Geodon most recently. He has been treated as an outpatient with aripiprazole 30 mg and fluoxetine 20 mg daily. PAST PSYCHIATRIC HISTORY: In-patient: As noted above, therefore psychiatric hospitalizations at [facility] with the most recent in November 2013. Outpatient treatment: Unknown. MEDICATIONS: In the past he has been treated with Geodon; however, most recently he has been on aripiprazole and fluoxetine. SUICIDE ATTEMPT HISTORY: Unknown. FAMILY HISTORY: Unknown. SOCIAL HISTORY: The patient reportedly was in [place] transitions and then ultimately moved to his own housing and will likely return there upon discharge. He has a supportive brother and other family members. PAST MEDICAL PROBLEMS: Non ST-segment elevation myocardial infarction, acute dyspnea resolved, acute leukocytosis improving, dyslipidemia chronic, hypertension chronic. CURRENT MEDICATIONS: Home medications: 1. Aspirin 81 mg daily. 2. Lisinopril 2.5 mg daily. 3. Simvastatin 40 mg at bedtime. 4. Fluoxetine 40 mg at bedtime. 5. Tamsulosin 0.4 mg daily. 6. Metoprolol 12.5 mg daily. 7. Lasix 20 mg daily. MEDICATION ALLERGIES: 1. CLOPIDOGREL. 2. CODEINE. 3. LISINOPRIL. 4. QUETIAPINE. 5. ROSUVASTATIN. 6. SIMVASTATIN. SUBSTANCE ABUSE: Alcohol history: Unknown. MENTAL STATUS EXAMINATION: Appearance: The patient is a moderately overweight male wearing hospital gown lying in bed. Hygiene appears adequate. Behavior: The patient is somewhat restless and only able to answer minimal questions. Mood: Appears anxious. Affect restricted but appears anxious. Speech: Only a few words were spoken by the patient and after significant latency. Difficult to assess articulation due to poverty of speech. Content of thought: He denies suicidal or homicidal ideation. Other questions could not be ascertained. Thought processes: He demonstrates significant thought blocking. Insight and judgment: Unable to assess. Memory and concentration: Unable to assess. Intelligence: In the average range based upon history and education. Orientation: Unable to assess. Sensorium: Unable to assess although the patient appears to be experiencing an acute catatonic episode. IMPRESSION: The patient is a 61-year-old male with a history of depression with psychotic features versus bipolar disorder depressed with psychotic features, as well as an anxiety disorder who currently presents as catatonic. PROVISIONAL DIAGNOSES: AXIS I: Major depressive disorder with psychotic features versus bipolar disorder, depressed, with psychotic features. AXIS II: Deferred. AXIS III: See past medical history. AXIS IV: Unknown. AXIS V: 15. PLAN: 1. Lorazepam 1 mg 3 times daily to address catatonia. 2. Aripiprazole 15 mg daily. 3. Fluoxetine 10 mg daily. We will start in the morning given the possibility of multiple drug interactions and we will assess response to treatment. 4. The patient will likely need some inpatient psychiatric treatment when eating and drinking appropriately and medically cleared. 5. The patient has had periods of time where he cleared fairly quickly and so this will need to be assessed on a daily basis. 6. Psychiatry will follow the patient on a daily basis until he is stabilized.
--- NOTE | 2016-09-03 06:37 | NUR ---
subtherapeutic ptt Pts ptt was drawn late by lab, notified, result was subtherapeutic. 1000unit bolus given and drip rate increased by 50units/kg/hr.
[2016-09-03] MEDS: LORazepam 1 mg Tablet PO SCH ×3 (08:00→20:30)
[2016-09-03 09:04] LABS: Mean Corpuscular Hemoglobin 29.5 pg (27.0-35.0); Mean Corpuscular Volume 83.3 fL (81-100)
--- NOTE | 2016-09-03 10:00 | NUR ---
PTT Call from lab, PTT = 42.3. 1000 Heparin bolus given, heparin gtt increased by 50 units/hr. Heparin gtt infusing at 1425 units/hr. PTT heparin lab ordered to be drawn in appo 6 hrs
[2016-09-03 10:38] LABS: TROPONIN T 0.207 ug/L (0.0-0.011)
--- NOTE | 2016-09-03 11:11 | PCM.PNPSY ---
Subjective Date of Service Sep 03, 2016 Subjective The patient was sitting up, eating breakfast. He was more responsive and speaking in complete sentences at times. The patient stated that he did not believe he had had an LA. He was advised to speak with his medical team. The patient denied side effects. Discussed restart of aripiprazole with patient. Patient attributed recent exacerbation to concerns about finances. Sleep: poor per patient Appetite: getting better Suicidal and homicidal ideation: denies Auditory hallucinations/Visual hallucinations: denies Other Psychotic Symptoms: catatonia present but improving. Anxiety: "better" Depression: "okay" Current Medications Current Medications Aripiprazole 15 mg ONCE ONCE PO Last administered on 09/02/16 13:48; Admin Dose 15 MG; Start 09/02/16 at 12:45; Stop 09/02/16 at 12:53; Status DC Aripiprazole 30 mg DAILY PO Last administered on 09/02/16 19:51; Admin Dose 30 MG; Start 09/03/16 at 08:30; Stop 09/03/16 at 08:30; Status DC Aspirin 81 mg DAILY PO Last administered on 09/03/16 07:59; Admin Dose 81 MG; Start 09/03/16 at 08:30 Aspirin 324 mg NOW ONCE PO Last administered on 09/01/16 23:38; Admin Dose 324 MG; Start 09/01/16 at 23:20; Stop 09/01/16 at 23:21; Status DC Atorvastatin Calcium 10 mg HS PO Last administered on 09/02/16 19:51; Admin Dose 10 MG; Start 09/02/16 at 21:00 Fluoxetine HCl 10 mg DAILY PO Last administered on 09/03/16 08:00; Admin Dose 10 MG; Start 09/03/16 at 08:30 Heparin Sodium (Porcine) Per Protocol for a... PRN PRN IVPUSH Last administered on 09/03/16 10:45; Admin Dose 1,000 UNIT; Start 09/01/16 at 23:55 Heparin Sodium/ Sodium Chloride/ Premix 500 ml @ 0 mls/hr DIRECTED IV Last administered on 09/02/16 21:09; Admin Dose 26.5 MLS/HR; Start 09/01/16 at 23:55 Lorazepam 1 mg TID PO Last administered on 09/02/16 19:51; Admin Dose 1 MG; Start 09/02/16 at 12:45 Metoprolol Tartrate 5 mg Q5MIN IVPUSH Last administered on 09/01/16 23:38; Admin Dose 5 MG; Start 09/01/16 at 23:20 Metoprolol Tartrate 25 mg BID PO Last administered on 09/03/16 08:00; Admin Dose 25 MG; Start 09/02/16 at 14:20 Nitroglycerin 0.4 mg Q5MIN PRN SL Last administered on 09/02/16 01:39; Admin Dose 0.4 MG; Start 09/02/16 at 00:35 Sodium Chloride 1,000 ml @ 0 mls/hr Q0M ONCE IV Last administered on 09/01/16 20:41; Admin Dose 999 MLS/HR; Start 09/01/16 at 20:00; Stop 09/01/16 at 20:02; Status DC Mental Status Exam Vital Signs Vital Signs Date Time Temp Pulse Resp B/P Pulse Ox O2 Delivery O2 Flow Rate FiO2 09/03/16 09:37 36.5 82 18 137/86 96 Room Air 09/03/16 08:47 85 09/03/16 05:23 73 09/03/16 04:19 37.2 77 20 147/86 96 Room Air Appearance: Unkept Attitude: Cooperative, Guarded Behavior: Stereotypic movements (latent, still with some catatonic features) Affect: Flat Mood: Anxious Thought Process/Associations: Goal Directed Speech Production: Paucity Speech Rate: Lags/Latency Speech Articulation: Other (mild dysarthria) Thought Content: Negativistic Danger to Self/Suicidal Ideati: None Danger to Others: None Hallucinations: Auditory (Denies), Visual (Denies) Consciousness: Alert, Lethargic, Other (resolving catatonia) Orientation: Person, Place Memory: Untestable Estimate Intellectual Function: Average Basis for IQ estimate: Word use/vocabulary, Educational history Attention/Concentration & Cogn: Impaired Insight: Limited Judgement: Poor Result Diagram: 09/03/16 0850 09/03/16 0930 Mental Health Plan The patient is a 61-year-old male with a history of depression with psychotic features versus bipolar disorder depressed with psychotic features, as well as an anxiety disorder who currently presents as catatonic. The catatonia appears improved, but the patient is still quite latent. The patient is currently denying having an LA or needing additional treatment, indicating that he may currently lack decisional capacity. [place] AXIS I: Major depressive disorder with psychotic features versus bipolar disorder, depressed, with psychotic features. AXIS II: Deferred. AXIS III: See past medical history. AXIS IV: Unknown. AXIS V: 25. Medications Medications to address General Physical Health Treatments 1. Lorazepam 1 mg 3 times daily to address catatonia. 2. Aripiprazole 15 mg daily. 3. Fluoxetine 10 mg daily. Should cardiology feel the risk of interaction with metoprolol is low, would increase fluoxetine to 20mg daily. 4. The patient will likely need some inpatient psychiatric treatment when eating and drinking appropriately and medically cleared. 5. The patient would have to agree to voluntary hospitalization and be certified prior to transfer. In his current state, he does not appear appropriate as a voluntary, and if he were to request discharge before medically cleared, SW should contact [facility]. 6. Psychiatry will follow the patient on a daily basis until he is stabilized. Peter Nair MD Sep 03, 2016 11:11
--- NOTE | 2016-09-03 11:57 | PCM.PNCARD ---
Subjective Date of service Sep 03, 2016 Chief Complaint NSTEMI History of Present Illness 61 year old male with past medical history of CAD status post 5 stent placement possibly 5 years ago, bipolar disorder, SI, SOB and hypertension. Patient reportedly called nurse triage lines complaining of shortness of breath and becoming minimally verbal. EMS arrived to patient's home where he is reported to be diaphoretic and tachycardic. At time of interview patient mostly nonverbal though denies active chest pain per patient's friend also present at time of interview states that patient had one episode of chest pain 2 weeks prior requiring the administration of home nitroglycerin with relief further stating patient has been noncompliant with outpatient medications. Cardiology consulted for elevated troponin levels. Subjective: Overnight patient reports no events, has no continuation of any pain or recurrence of symptoms. Does endorse history of shortness of breath though no shortness of breath at time of interview. Overall patient is mentating far better than yesterday REVIEW OF SYSTEMS Constitutional: Denies Fever or chills Eyes: Denies Vision Changes Cardiovascular: Denies Chest Pain, Edema, Irregular Heart Rate, Palpitations, endorses transient shortness of breath chronic in nature Respiratory: Denies Cough, current shortness of breath, Wheezing Gastrointestinal: Denies Abdominal Pain, Diarrhea, Heartburn, Nausea, Vomiting. Endorses constipation Genitourinary: Denies No burning or pain with urination Neurological: Dizziness, Double Vision, Localized Weakness, Hematologic: Denies Abnormal Bleeding, Bruising Problem List: # NSTEMI # CAD s/p 5 stent placement approximately 5 years ago # HTN # Psychosis Exam Vital Signs Vital Sign - Last Date Time Temp Pulse Resp B/P Pulse Ox O2 Delivery O2 Flow Rate FiO2 09/03/16 09:37 36.5 82 18 137/86 96 Room Air 09/02/16 06:14 1.00 Intake and Output 09/02/16 09/02/16 09/03/16 Cumulative From/Thru 15:00 23:00 07:00 09/01/16 20:00 - 09/03/16 06:05 Intake Total 134 ml 586 ml 300 ml 1020 ml Output Total 440 ml 840 ml Balance 134 ml 586 ml -140 ml 180 ml Intake Oral 586 ml 300 ml 886 ml IV Total 134 ml 134 ml Output Urine Total 440 ml 840 ml # Voids 3 3 # Bowel Movements 0 1 1 Additional Information: General: No acute distress, well-developed, well-nourished, flat and distant affect though is markedly more conversant than yesterday able to hold minimal conversation and answers questions in multiple word sentences. HEENT: Normocephalic, atraumatic. External ears without defect. Pupils equal, round, and reactive to light and accommodation. Neck: Supple with full range of motion. No jugular venous distension. No bruits.. Cardiovascular: Regular rate and rhythm with no murmurs, rubs, or gallops appreciated Pulmonary: Clear to auscultation bilaterally with no crackles, wheezes, or rhonchi. Normal respiratory effort with no use of accessory muscles. Abdomen: Soft, nontender, nondistended. Extremities: No clubbing, cyanosis, edema Neurological: Cranial nerves grossly intact Psychiatric: Flat and distant affect. Oriented to person place, per patient's friend also present in the room patient mentating close to baseline. Lab and Diagnostics Result Diagram: 09/03/16 0850 09/03/16 0930 X-Rays, CTs and MRIs 12-lead ECG Sinus rhythm with abnormal R-wave progression early transition. Old Inferior infarct Additional Diagnostics: Echocardiogram Report Interpretation Summary: Left ventricular wall thickness is mildly increased. The left ventricular ejection fraction is grossly normal.There are no obvious focal wall motion abnormalities noted but poor endocardial definition reduces the sensitivity for the detection of such. Assessment of diastolic parameters indicates normal left ventricular diastolic function and normal filling pressures. The right ventricle grossly appears normal in size with probable normal systolic function. Both atria are normal in size. There is no significant valvular heart disease. The aortic root is normal size. CT BRAIN WITHOUT CONTRAST: IMPRESSION: No acute intracranial abnormalities. Dictated by: Nick Feliciano M.D. CT ANGIO CHEST PULMONARY EMBOLISM: IMPRESSION: 1. No central pulmonary embolism. 2. Mild coronary artery calcification consistent with atherosclerosis. 3. Cholelithiasis. 4. A 1.6 cm cyst in the superior pole of the left kidney. No significant discrepancy with the shift supervisor melting radiology preliminary report. X-RAY CHEST ONE VIEW, PORTABLE: IMPRESSION: No acute cardiopulmonary disease. Dictated by: Nick Feliciano M.D. Assessment & Plan Assessment 61 yo M h/o significant untreated mental illness, known prior CAD s/p prior stents, HTN, and non-compliance admitted with NSTEMI. # NSTEMI. Due to severe mental illness, patient's story is difficult to obtain. But from friend and family, it appears that patient was having chest pain two weeks ago. On admission, he was having diaphoresis and dyspnea when he sought medical attention. Patient's clinical symptoms suggestive of acute coronary syndrome and the patient's troponin also elevated which confirms NSTEMI (peak troponin 0.39), this value has been trending down. ECG doesn't know show bony STEMI. ECHO 09/02/2016 showed no focal wall motion abnormalities , though the study was somewhat limited due to difficulty with visualization. I have spent significant time since admission educating the patient, patients brother and family, and psychiatrist about the patient's condition and answered their questions. Given history of non-compliance, I would recommend doing medical management for the time being we will consider cath in the future if patient has any recurrence of symptoms though at this time he is stable and responded well to medical management. And remains asymptomatic of chest pain. Another complicating factor is that he is allergic to clopidogrel and to some statins. Plan: - Continue aspirin 81 mg daily - Continue atorvastatin 10 mg at bedtime. Patient reports no adverse reaction to this medication. - Continue Metoprolol tartrate 25 mg twice a day - Continue heparin drip for another 24 hours and then stop - No cath for now due to severe mental illness and do medical management as above # HTN: BP well controlled with above medications. # Depression/bipolar/psychosis: history of suicidal ideation. Patient came in not taking any medications and had poor insight. He appears better with starting of his psychiatric medications but termite control servicer prognosis remains guarded due to patient's living situation (lives alone). Will defer mental healthy management to psychiatry. Problems: VTE Prophylaxis: Other (Heparin gtt) Resuscitation Status: CPR: Attempt Resuscitation Attending Statement I saw, examined, and evaluated the patient with Dr. Gray Menon on 09/03/2016 and agree with the note as above along with my edits. GRAY MENON DO Sep 03, 2016 11:17 Erickson Pond MD Sep 03, 2016 12:12
--- NOTE | 2016-09-03 16:22 | PCM.PNMED ---
Subjective Date of Service Sep 03, 2016 Subjective denies any chest pain or discomfort at this time Exam Vital Signs Vital Sign - Last Date Time Temp Pulse Resp B/P Pulse Ox O2 Delivery O2 Flow Rate FiO2 09/03/16 09:37 36.5 82 18 137/86 96 Room Air 09/02/16 06:14 1.00 Intake and Output 09/02/16 09/02/16 09/03/16 Cumulative From/Thru 15:00 23:00 07:00 09/01/16 20:00 - 09/03/16 06:05 Intake Total 134 ml 586 ml 300 ml 1020 ml Output Total 440 ml 840 ml Balance 134 ml 586 ml -140 ml 180 ml Intake Oral 586 ml 300 ml 886 ml IV Total 134 ml 134 ml Output Urine Total 440 ml 840 ml # Voids 3 3 # Bowel Movements 0 1 1 Exam General: No acute distress. more interactive today HEENT: Normocephalic, atraumatic. Anicteric sclerae Neck: Supple. Full ROM Cardiovascular: Regular rate and rhythm with no murmurs, rubs, or gallops appreciated Pulmonary: Clear to auscultation bilaterally with no crackles, wheezes, or rhonchi. chest wall normal Abdomen: Soft, nontender, nondistended, +bs Extremities: No clubbing, cyanosis, edema, or lymphadenopathy appreciated. Skin: Normal temperature, turgor, and texture; no rash, ulcers, or subcutaneous nodules appreciated. Neurological: Cranial nerves grossly intact. Psychiatric: mood appears mildly improved with patient appearing more relaxed and interactive IVs and Medications Medications Reviewed: Medications were reviewed in detail Lab and Diagnostics Result Diagram: 09/03/16 0850 09/03/16 0930 X-Rays, CTs and MRIs Date of Service: 09/01/162055 PROCEDURE: CT BRAIN WITHOUT CONTRAST ([id number]) INDICATIONS: 61 year-old male with altered mental status. TECHNIQUE: Noncontrast 4.5 mm thick angled axial sections acquired from the foramen magnum to the vertex, with coronal reformats. COMPARISON: [facility], CT, BRAIN W/O CONTRAST, 08/18/2010, 14:57. [facility], CT, BRAIN W/O CONTRAST, 02/21/2006, 13:05. FINDINGS: Image quality: Excellent. CSF spaces: Basal cisterns are patent. No extra-axial fluid collections. Ventricles are normal in size and shape. Brain: No midline shift. No intracranial masses or hemorrhage. Cadena-white matter interface is normal. Skull and face: Calvarium and visualized facial bones are intact, without suspicious lesions. Sinuses: Visualized sinuses and mastoids are clear. IMPRESSION: No acute intracranial abnormalities. Dictated by: Nick Feliciano M.D. on 09/01/2016 at 21:07 Approved by: Nick Feliciano M.D. on 09/01/2016 at 21:08 ---- Exam date: 09/01/2016 CT PULMONARY ANGIOGRAM CONCLUSION: No evidence of pulmonary embolism or dissection. Prominent coronary artery calcifications. Assessment & Plan 61-year-old male with hypertension, major depressive disorder with history of suicidal ideation presenting with shortness of breath and admitted for NSTEMI. # Acute NSTEMI. Present on admission. currently without CP - appreciate cardiology consult. will f/u w/ recs - Continue aspirin 81 mg daily - Continue atorvastatin 10 mg at bedtime. - Continue Metoprolol tartrate 25 mg twice a day - Continue heparin drip for another 24 hours and then stop - No cath for now # Acute dyspnea. Present on admission. Resolved - Essentially resolved at time of visit - Uncertain etiology. Possibly related to NSTEMI noted above, or could be related to stress and anxiety - Follow clinically # Acute catatonia and psychomotor retardation. Present on admission. improving - history of depression with psychotic features versus bipolar disorder depressed with psychotic features, as well as an anxiety disorder - appreciate psychiatry consult. will f/u w/ recs - Lorazepam 1 mg 3 times daily to address catatonia. - Aripiprazole 15 mg daily. - Fluoxetine 10 mg daily. Should cardiology feel the risk of interaction with metoprolol is low, increase fluoxetine to 20mg daily. - will likely need some inpatient psychiatric treatment when eating and drinking appropriately and medically cleared. # Acute leukocytosis. Present on admission. Resolved - No obvious signs of infection - f/u # Dyslipidemia, chronic. Present on admission - Continue statin # Hypertension, chronic. Present on admission - cardiac meds as noted above Dispo: 1-2 days VTE Prophylaxis: Other (Heparin gtt) Resuscitation Status: CPR: Attempt Resuscitation Time spent 35 min Geronimo Beaulieu Sep 03, 2016 16:22
--- NOTE | 2016-09-03 17:30 | NUR ---
PTT Call from lab. PTT = 40.2, 3000 unit heparin bolus given, Heparin gtt increased 100 unit/hr. Heparin gtt infusing at 1525 units per hour. Pt resting quietly, appears comfortable, family visiting. Call light with in reach will continue to monitor.
[2016-09-03] MEDS: Heparin 25K Unit/500mL 0.45 NS 25,000 UNIT in IV Premix 1 EACH IV SCH (17:55)
--- NOTE | 2016-09-03 18:36 | NUR ---
Surgery cancellation Pt is concerned about surgery scheduled for 09/05/16 at [facility] with Dr Peter Cuevas. Requesting this RN call and let MD know that surgery needs to be cancelled. Call to [phone], spoke with answering service for Dr Peter Cuevas (urology), message relayed pt is at [facility] and will not be available for surgery as scheduled.
[2016-09-04] VITALS (9 sets, daily range): BP systolic 123–162; BP diastolic 63–103; PULSE 64–102; RESP 18; O2SAT 95–97
--- NOTE | 2016-09-04 06:01 | NUR ---
BM Pt had large formed brown BM this morning. Guaiac sent. Pt slept almost all shift and has had no complaints of chest discomfort.
[2016-09-04] MEDS: LORazepam 1 mg Tablet PO SCH ×3 (08:37→20:52)
[2016-09-04] MEDS: Heparin 25K Unit/500mL 0.45 NS 25,000 UNIT in IV Premix 1 EACH IV SCH (10:49)
--- NOTE | 2016-09-04 14:31 | PCM.PNCARD ---
Subjective Date of service Sep 04, 2016 Chief Complaint NSTEMI History of Present Illness 61 yo M h/o severe mental illness admitted with NSTEMI. Subjective: Patient continues to feel better mentally and is able to speak in complete sentences. Denies chest pain over the past 24 hours and in fact since hospitalization. ROS: per HPI and otherwise unremarkable Problem List: # NSTEMI # CAD s/p 5 stent placement approximately 5 years ago # HTN # Psychosis Exam Vital Signs Vital Sign - Last Date Time Temp Pulse Resp B/P Pulse Ox O2 Delivery O2 Flow Rate FiO2 09/04/16 14:09 36.8 73 18 158/81 95 Room Air 09/02/16 06:14 1.00 Intake and Output 09/03/16 09/03/16 09/04/16 Cumulative From/Thru 15:00 23:00 07:00 09/01/16 20:00 - 09/04/16 05:26 Intake Total 676 ml 1415 ml 3111 ml Output Total 850 ml 750 ml 2440 ml Balance -174 ml 665 ml 671 ml Intake Oral 676 ml 250 ml 1812 ml IV Total 1165 ml 1299 ml Output Urine Total 850 ml 750 ml 2440 ml # Voids 3 # Bowel Movements 1 General appearance: No apparent distress, well-nourished, pleasant, cooperative HEET: Normocephalic atraumatic, no scleral icterus, tongue midline, mucous membranes moist Neck: supple Cardiovascular: RRR, normal S1 and normal S2, no murmurs/ rubs/gallops, PMI nondisplaced, no JVD, no peripheral edema Respiratory: Good aeration, CTAB Abdomen: Soft, nontender, nondistended, + bowel sounds Neuro: Alert, no facial droop, tongue midline, no gross motor deficits Psych: flat affect Lab and Diagnostics Result Diagram: 09/03/16 0850 09/03/16 0930 Assessment & Plan Assessment 61 yo M h/o significant untreated mental illness, known prior CAD s/p prior stents, HTN, and non-compliance admitted with NSTEMI. # NSTEMI. Due to severe mental illness, patient's story is difficult to obtain. But from friend and family, it appears that patient was having chest pain two weeks ago. On admission, he was having diaphoresis and dyspnea when he sought medical attention. Patient's clinical symptoms suggestive of acute coronary syndrome and the patient's troponin also elevated which confirms NSTEMI (peak troponin 0.39), this value has been trending down. ECG doesn't know show bony STEMI. ECHO 09/02/2016 showed no focal wall motion abnormalities , though the study was somewhat limited due to difficulty with visualization. I have spent significant time since admission educating the patient, patients brother and family, and psychiatrist about the patient's condition and answered their questions. Given history of non-compliance, I would recommend doing medical management for the time being we will consider cath in the future if patient has any recurrence of symptoms though at this time he is stable and responded well to medical management. And remains asymptomatic of angina or angina equivalent. Another complicating factor is that he is allergic to clopidogrel and to some statins. Plan: - Continue aspirin 81 mg daily - Continue atorvastatin 10 mg at bedtime. Patient reports no adverse reaction to this medication. - Continue Metoprolol tartrate 25 mg twice a day - Stop heparin gtt patient has been on it for 48 hours now - If patient having angina with exertion, start imdur 30mg daily and uptitrate to 60mg daily after one week - No cath for now due to severe mental illness and do medical management as above # HTN: BP well controlled with above medications. # Depression/bipolar/psychosis: history of suicidal ideation. Patient came in not taking any medications and had poor insight. He appears better with starting of his psychiatric medications but [facility]ci prognosis remains guarded due to patient's living situation (lives alone). Will defer mental healthy management to psychiatry. Cardiology will sign off at this time. Recommend outpatient cardiology f/u in 2 -4 weeks. Problems: VTE Prophylaxis: Other (Heparin gtt) Resuscitation Status: CPR: Attempt Resuscitation Erickson Pond MD Sep 04, 2016 14:31
--- NOTE | 2016-09-04 15:10 | NUR ---
Social Work: Continued Discharge Planning D: Pt discussed in am rounds. Pt is still not medically stable. Cardiology has signed off. Psychiatry is continuing to follow and states that pt will likely need to be involuntarily detained as he may lack decisional capacity once pt is medically cleared. Please reference psychiatry notes for more detailed updates. A: Pt has been ambulating I during admission free from assistive devices. Pt has a history of MH and SI. P: PROTECTION ENGINEER to continue to follow closely and consult with psychiatry about pt's MH plan; PROTECTION ENGINEER may need to contact DM if pt is involuntary or complete bed cert if pt is decisional and voluntary. MK Enamorado
--- NOTE | 2016-09-04 15:56 | PCM.PNMED ---
Subjective Date of Service Sep 04, 2016 Subjective denies any chest pain or discomfort at this time Exam Vital Signs Vital Sign - Last Date Time Temp Pulse Resp B/P Pulse Ox O2 Delivery O2 Flow Rate FiO2 09/04/16 14:09 36.8 73 18 158/81 95 Room Air 09/02/16 06:14 1.00 Intake and Output 09/03/16 09/03/16 09/04/16 Cumulative From/Thru 15:00 23:00 07:00 09/01/16 20:00 - 09/04/16 05:26 Intake Total 676 ml 1415 ml 3111 ml Output Total 850 ml 750 ml 2440 ml Balance -174 ml 665 ml 671 ml Intake Oral 676 ml 250 ml 1812 ml IV Total 1165 ml 1299 ml Output Urine Total 850 ml 750 ml 2440 ml # Voids 3 # Bowel Movements 1 Exam General: No acute distress. more interactive today HEENT: Normocephalic, atraumatic. Anicteric sclerae Neck: Supple. Full ROM Cardiovascular: Regular rate and rhythm with no murmurs, rubs, or gallops appreciated Pulmonary: Clear to auscultation bilaterally with no crackles, wheezes, or rhonchi. chest wall normal Abdomen: Soft, nontender, nondistended, +bs Extremities: No clubbing, cyanosis, edema, or lymphadenopathy appreciated. Skin: Normal temperature, turgor, and texture; no rash, ulcers, or subcutaneous nodules appreciated. Neurological: Cranial nerves grossly intact. Psychiatric: mood appears improving with patient appearing more relaxed and interactive IVs and Medications Medications Reviewed: Medications were reviewed in detail Lab and Diagnostics Result Diagram: 09/03/16 0850 09/03/16 0930 X-Rays, CTs and MRIs Date of Service: 09/01/162055 PROCEDURE: CT BRAIN WITHOUT CONTRAST ([id number]) INDICATIONS: 61 year-old male with altered mental status. TECHNIQUE: Noncontrast 4.5 mm thick angled axial sections acquired from the foramen magnum to the vertex, with coronal reformats. COMPARISON: [facility], CT, BRAIN W/O CONTRAST, 08/18/2010, 14:57. [facility], CT, BRAIN W/O CONTRAST, 02/21/2006, 13:05. FINDINGS: Image quality: Excellent. CSF spaces: Basal cisterns are patent. No extra-axial fluid collections. Ventricles are normal in size and shape. Brain: No midline shift. No intracranial masses or hemorrhage. Cadena-white matter interface is normal. Skull and face: Calvarium and visualized facial bones are intact, without suspicious lesions. Sinuses: Visualized sinuses and mastoids are clear. IMPRESSION: No acute intracranial abnormalities. Dictated by: Nick Feliciano M.D. on 09/01/2016 at 21:07 Approved by: Nick Feliciano M.D. on 09/01/2016 at 21:08 ---- Exam date: 09/01/2016 CT PULMONARY ANGIOGRAM CONCLUSION: No evidence of pulmonary embolism or dissection. Prominent coronary artery calcifications. Assessment & Plan 61-year-old male with hypertension, major depressive disorder with history of suicidal ideation presenting with shortness of breath and admitted for NSTEMI. # Acute NSTEMI. Present on admission. currently without CP - appreciate cardiology consult. will f/u w/ recs - Continue aspirin 81 mg daily - Continue atorvastatin 10 mg at bedtime. - Continue Metoprolol tartrate 25 mg twice a day - stop heparin drip - per discussion with Dr. Pond (after his prog note) will start pt on Imdur 30mg daily now with plan f/u w/ cardiology in 2-4 weeks - will have nursing ambulate patient in am to ensure asymptomatic - No cath for now # Acute dyspnea. Present on admission. Resolved - Essentially resolved at time of visit - Uncertain etiology. Possibly related to NSTEMI noted above, or could be related to stress and anxiety - Follow clinically # Acute catatonia and psychomotor retardation. Present on admission. improving - history of depression with psychotic features versus bipolar disorder depressed with psychotic features, as well as an anxiety disorder - appreciate psychiatry consult. will f/u w/ recs - Lorazepam 1 mg 3 times daily to address catatonia. - Aripiprazole 15 mg daily. - Fluoxetine 10 mg daily. per discussion with cardiology may increase fluoxetine to 20mg daily. - will likely need some inpatient psychiatric treatment. will discuss with psych # Acute leukocytosis. Present on admission. Resolved - No obvious signs of infection - f/u # Dyslipidemia, chronic. Present on admission - Continue statin # Hypertension, chronic. Present on admission - cardiac meds as noted above Dispo: 1-2 days ? home vs inpatient psych VTE Prophylaxis: Other (Heparin gtt) Resuscitation Status: CPR: Attempt Resuscitation Time spent 35 min Geronimo Beaulieu Sep 04, 2016 15:56
--- NOTE | 2016-09-04 21:27 | PCM.PNPSY ---
Subjective Date of Service Sep 04, 2016 Subjective The patient was sitting up and more alert and speaking and more fluid sentences than yesterday. He continues to report that he did not have a heart attack. He was advised to speak with his medical team. The patient denied side effects. The patient was tolerating the addition of fluoxetine and we discussed increasing the dose if cardiology approved. According to the hospitalist note, cardiology approves of the increase in fluoxetine. Sleep: Better per patient Appetite: "Pretty good" Suicidal and homicidal ideation: denies Auditory hallucinations/Visual hallucinations: denies Other Psychotic Symptoms: catatonia present but improving, still denies having had an MO. Anxiety: "Not too bad" Depression: "Not too bad" Current Medications Current Medications Aripiprazole 15 mg DAILY PO Last administered on 09/04/16 08:37; Admin Dose 15 MG; Start 09/03/16 at 08:30 Aripiprazole 30 mg DAILY PO Last administered on 09/02/16 19:51; Admin Dose 30 MG; Start 09/03/16 at 08:30; Stop 09/03/16 at 08:30; Status DC Aspirin 81 mg DAILY PO Last administered on 09/04/16 08:37; Admin Dose 81 MG; Start 09/03/16 at 08:30 Fluoxetine HCl 10 mg DAILY PO Last administered on 09/04/16 08:36; Admin Dose 10 MG; Start 09/03/16 at 08:30 Mental Status Exam Vital Signs Vital Signs Date Time Temp Pulse Resp B/P Pulse Ox O2 Delivery O2 Flow Rate FiO2 09/04/16 20:00 84 09/04/16 18:24 36.3 102 18 162/103 96 Room Air 09/04/16 14:09 36.8 73 18 158/81 95 Room Air Appearance: Unkept Attitude: Cooperative, Guarded Behavior: Stereotypic movements (latent, still with some catatonic features) Affect: Flat Mood: Anxious Thought Process/Associations: Goal Directed Speech Production: Paucity Speech Rate: Lags/Latency Speech Articulation: Normal Thought Content: Negativistic Danger to Self/Suicidal Ideati: None Danger to Others: None Hallucinations: Auditory (Denies), Visual (Denies) Consciousness: Alert, Lethargic, Other (resolving catatonia) Orientation: Person, Place Memory: Short Term Memory (Impaired) Estimate Intellectual Function: Average Basis for IQ estimate: Word use/vocabulary, Educational history Attention/Concentration & Cogn: Impaired Insight: Limited Judgement: Poor Result Diagram: 09/03/16 0850 09/03/16 0930 Mental Health Plan The patient is a 61-year-old male with a history of depression with psychotic features versus bipolar disorder depressed with psychotic features, as well as an anxiety disorder who currently presents as catatonic. The catatonia appears improved, but the patient is still quite latent. The patient is currently denying having an MO or needing additional treatment, indicating that he may currently lack decisional capacity. The hospitalist note indicates an increase fluoxetine. [place] AXIS I: Major depressive disorder with psychotic features versus bipolar disorder, depressed, with psychotic features. AXIS II: Deferred. AXIS III: See past medical history. AXIS IV: Unknown. AXIS V: 25. Medications Medications to address General Physical Health Treatments 1. Lorazepam 1 mg 3 times daily to address catatonia. 2. Aripiprazole 15 mg daily. 3. Increase fluoxetine to 20 mg daily. 4. The patient will likely need some inpatient psychiatric treatment when eating and drinking appropriately and medically cleared. 5. The patient would have to agree to voluntary hospitalization and be certified prior to transfer. In his current state, he does not appear appropriate as a voluntary, and if he were to request discharge before medically cleared, SW should contact [facility]. 6. Psychiatry will follow the patient until he is stabilized. Peter Nair MD Sep 04, 2016 21:27
[2016-09-05] VITALS (8 sets, daily range): BP systolic 100–125; BP diastolic 61–77; PULSE 65–89; RESP 18; O2SAT 95–97
[2016-09-05] MEDS: Isosorbide Mononitrate 30 mg ER24 Tablet PO SCH (08:33)
[2016-09-05] MEDS: LORazepam 1 mg Tablet PO SCH ×3 (08:33→21:07)
--- NOTE | 2016-09-05 14:20 | NUR ---
Social Work Discharge: SW acknowledged order for discharge. Patient is a 61 year old male admitted on 09/02/16 for non stemi, aphasia tachycardia and chest pain. Patient also presented with depressive disorder with suicidal ideation history. Patient presented with flat affect during SW assessment. Patient responded with one word answers of "yes" and "no" and didn't elaborate much regarding previous psychiatric history. Patient states that he follows up with outpatient psych MD Margarette Hurt in the community. Patient also states that his pharmacy of choice as [facility] pharmacy, . Patient states having no previous HHC, SNF, DME or AD history. Patient declined AD completion at this time. Patient states being independent with all needs and states that brother Francisco, assists with needs at home from time to time. Patient states being active with the [facility] program, for medication management. SW contacted [facility] program and spoke with patient Rn Judi who assess patient one a week, every Wed for medication management and individual counseling at home. Judi states that patient resides at [facility] independently and is independent at baseline. Judi states that she has a scheduled outpt appointment with him this week Wed at 9:30am. Rep states that patient normally displays flat affect and usually responds with one word answers. Patient receives counseling services for depression. Patient has 4 children 2 boys who reside in [facility] and 2 daughters who reside in [facility]. Patient was estranged from children most of his life but recently reconnected with family during [place]. Judi states that patient was recently discharged from his home medication of Abilify by MD Hurt as a result to tongue thrusting 1 month ago. Judi also states that patient also meets with other team members via the [facility] program whom assist patient with counseling needs. MADELEINE faxed clinicals to [facility] Rn Judi, . Pych MD Rosenthal contacted to discuss above. Patient states having no current suicidal ideations at this time. Patient SW spoke with rep Helene, [id number] who states the MD Leyva wishes patient to be detained and contact to [facility] needed, [phone]. SW contacted [facility] to determine procedure for transfer PLAN: Transfer to in psych JohnStefan TERRAZAS Addendum: 09/05/16 at 1458 by SCOUT DO SW spoke to [facility] rep Kylee who was updated. Kylee was provided with report. Kylee states that contact to [facility] to be made and [facility] inside account representative to be sent to assess patient within 2 hrs. SW to be contacted with follow up. SW to follow. PLAN: Discharge to inpt psych pending [facility] assessment. SW to follow. Mariaelena TERRAZAS Addendum: 09/05/16 at 1633 by SCOUT DO SW spoke to rep Ford at [facility] who states that [facility] inside account representative dispatched and rep Shi Fiore or Sita Miller to conduct bedside eval. SW to follow Mariaelena TERRAZAS Addendum: 09/05/16 at 1641 by SCOUT TAYLOR SS MADELEINE spoke to Fabian Kim who states that he will assess patient today at 5:30pm-6pm to conduct assessment. MADELEINE spoke to rep Del Rosario, [id number] who states that bed available today late evening around 11pm. MADELEINE left message for ED MADELEINE to followStefan TERRAZAS
--- NOTE | 2016-09-05 14:37 | PCM.PNPSY ---
Subjective Date of Service Sep 05, 2016 Subjective I spent 30 minutes both reviewing his treatment plan and providing supportive and educational psychotherapy. I spent more than 50% of the time counseling the patient. I reviewed the initial history and physical and psychiatric consult. I reviewed the Treatment plan and his options with the patient. I discussed options available including the potential risks, benefits and side effects. Trae reports that he wants to go home today. He struggled to identify how he is feeling or thinking. He is declining my offer for inpatient hospitalization on the psych gorman. He was able to tell me that he did have a myocardial infarction however his responses were extremely latent. He has a history of depression and appears to continue to be in the middle of a major depressive episode. Current Medications Current Medications Fluoxetine HCl 20 mg DAILY PO Last administered on 09/05/16 08:33; Admin Dose 20 MG; Start 09/05/16 at 08:30 Isosorbide Mononitrate 30 mg 0730 PO Last administered on 09/05/16 08:33; Admin Dose 30 MG; Start 09/05/16 at 07:30 Mental Status Exam Vital Signs Vital Signs Date Time Temp Pulse Resp B/P Pulse Ox O2 Delivery O2 Flow Rate FiO2 09/05/16 11:19 89 09/05/16 09:59 36.8 69 18 100/61 96 Room Air Appearance: Unkept Attitude: Cooperative, Guarded Behavior: Stereotypic movements (latent, still with some catatonic features) Affect: Restricted, Blunted, Flat Mood: Dysthymic, Depressed Thought Process/Associations: Goal Directed Speech Production: Paucity Speech Rate: Lags/Latency Speech Articulation: Normal Thought Content: Negativistic Danger to Self/Suicidal Ideati: None Danger to Others: None Hallucinations: Auditory (Denies), Visual (Denies) Consciousness: Alert, Lethargic, Other (resolving catatonia) Orientation: Person, Place Memory: Short Term Memory (Impaired) Estimate Intellectual Function: Average Basis for IQ estimate: Word use/vocabulary, Educational history Attention/Concentration & Cogn: Impaired Insight: Limited Judgement: Poor Result Diagram: 09/03/16 0850 09/03/16 0930 Mental Health Plan The patient is a 61-year-old male with a history of depression with psychotic features who presented initially in a near catatonic state. The catatonia appears improved, but the patient remains quite latent and I believe gravely disabled. The patient is currently denying needing additional treatment, and is requesting to go home today. Given his impaired thought Processing and recent depression with catatonia I do not believe he is competent to make medical decisions at this point. I believe he would benefit from a 5-7 day on her psych unit with both psychosocial rehabilitation and additional adjustment of his medications. Mallory AXIS I: Major depressive disorder with psychotic features AXIS II: Deferred. AXIS III: See past medical history. AXIS IV: Unknown. AXIS V: 30. Medications Treatments Recommended patient be evaluated by a [facility] designated mental health professional. Patient is not a good cassie voluntary for admit to our psychiatric unit. I will accept him on the psychiatric unit as soon as he is evaluated and detained. Aden Leyva MD Sep 05, 2016 14:37
--- NOTE | 2016-09-05 15:00 | PCM.PNMED ---
Subjective Date of Service Sep 05, 2016 Subjective denies any chest pain or discomfort at this time Exam Vital Signs Vital Sign - Last Date Time Temp Pulse Resp B/P Pulse Ox O2 Delivery O2 Flow Rate FiO2 09/05/16 14:03 36.6 83 18 115/77 95 Room Air 09/02/16 06:14 1.00 Intake and Output 09/04/16 09/04/16 09/05/16 Cumulative From/Thru 15:00 23:00 07:00 09/01/16 20:00 - 09/05/16 06:42 Intake Total 1036 ml 436 ml 4583 ml Output Total 650 ml 3090 ml Balance 386 ml 436 ml 1493 ml Intake Oral 1036 ml 436 ml 3284 ml IV Total 1299 ml Output Urine Total 650 ml 3090 ml # Voids 1 4 # Bowel Movements 1 2 Exam General: No acute distress. more interactive today HEENT: Normocephalic, atraumatic. Anicteric sclerae Neck: Supple. Full ROM Cardiovascular: Regular rate and rhythm with no murmurs, rubs, or gallops appreciated Pulmonary: Clear to auscultation bilaterally with no crackles, wheezes, or rhonchi. chest wall normal Abdomen: Soft, nontender, nondistended, +bs Extremities: No clubbing, cyanosis, edema, or lymphadenopathy appreciated. Neurological: Cranial nerves grossly intact. Psychiatric: mood appears improving with patient appearing more relaxed and interactive IVs and Medications Medications Reviewed: Medications were reviewed in detail Lab and Diagnostics Result Diagram: 09/03/16 0850 09/03/16 0930 X-Rays, CTs and MRIs Date of Service: 09/01/162055 PROCEDURE: CT BRAIN WITHOUT CONTRAST ([id number]) INDICATIONS: 61 year-old male with altered mental status. TECHNIQUE: Noncontrast 4.5 mm thick angled axial sections acquired from the foramen magnum to the vertex, with coronal reformats. COMPARISON: [facility], CT, BRAIN W/O CONTRAST, 08/18/2010, 14:57. [facility], CT, BRAIN W/O CONTRAST, 02/21/2006, 13:05. FINDINGS: Image quality: Excellent. CSF spaces: Basal cisterns are patent. No extra-axial fluid collections. Ventricles are normal in size and shape. Brain: No midline shift. No intracranial masses or hemorrhage. Cadena-white matter interface is normal. Skull and face: Calvarium and visualized facial bones are intact, without suspicious lesions. Sinuses: Visualized sinuses and mastoids are clear. IMPRESSION: No acute intracranial abnormalities. Dictated by: Nick Feliciano M.D. on 09/01/2016 at 21:07 Approved by: Nick Feliciano M.D. on 09/01/2016 at 21:08 ---- Exam date: 09/01/2016 CT PULMONARY ANGIOGRAM CONCLUSION: No evidence of pulmonary embolism or dissection. Prominent coronary artery calcifications. Assessment & Plan 61-year-old male with hypertension, major depressive disorder with history of suicidal ideation presenting with shortness of breath and admitted for NSTEMI. # Acute NSTEMI. Present on admission. currently without CP - appreciate cardiology consult. will f/u w/ recs - Continue aspirin 81 mg daily - Continue atorvastatin 10 mg at bedtime. - Continue Metoprolol tartrate 25 mg twice a day - stop heparin drip - per discussion with Dr. Pond on 09/04/16 start pt on Imdur 30mg daily now with plan f/u w/ cardiology in 2-4 weeks - No cath for now # Acute dyspnea. Present on admission. Resolved - Essentially resolved at time of visit - Uncertain etiology. Possibly related to NSTEMI noted above, or could be related to stress and anxiety - Follow clinically # Acute catatonia and psychomotor retardation. Present on admission. improving - history of depression with psychotic features versus bipolar disorder depressed with psychotic features, as well as an anxiety disorder - appreciate psychiatry consult. will f/u w/ recs - Lorazepam 1 mg 3 times daily to address catatonia. - Aripiprazole 15 mg daily. - Fluoxetine 10 mg daily. per discussion with cardiology may increase fluoxetine to 20mg daily. - will likely need some inpatient psychiatric treatment. # Acute leukocytosis. Present on admission. Resolved - No obvious signs of infection - f/u # Dyslipidemia, chronic. Present on admission - Continue statin # Hypertension, chronic. Present on admission - cardiac meds as noted above Dispo: ? inpatient psych pending further assessment VTE Prophylaxis: Other (Heparin gtt) Resuscitation Status: CPR: Attempt Resuscitation MicahGopi danielsd Sep 05, 2016 15:00
[2016-09-06 00:30] VITALS: BP 120/65; PULSE 60; RESP 18; O2SAT 95
--- NOTE | 2016-09-06 03:43 | NUR ---
UNEVENTFUL NIGHT Patient sleeping most of night. Flat affect and depressed mood with delayed responses upon initial assessment. Denies any pain issues. Paperwork for [facility] completed and patient waiting bed on [facility].
[2016-09-06 06:13] VITALS: BP 110/62; PULSE 64; RESP 18; O2SAT 94
[2016-09-06] MEDS: Isosorbide Mononitrate 30 mg ER24 Tablet PO SCH (09:19)
[2016-09-06] MEDS: LORazepam 1 mg Tablet PO SCH ×2 (09:19→21:33)
[2016-09-06 10:15] VITALS: BP 124/79; PULSE 78; PULSE 89; RESP 18; O2SAT 94
[2016-09-06] MEDS ORDERED: METO25TA6 PO (10:25)
[2016-09-06] MEDS ORDERED: ATOR10TA66 PO (10:25)
[2016-09-06] MEDS ORDERED: ISOS30TA4 PO (10:25)
[2016-09-06] MEDS ORDERED: LORA-303 PO (10:25)
[2016-09-06] MEDS ORDERED: ARIP15TA2 PO (10:25)
[2016-09-06] MEDS ORDERED: FLUO20CA25 PO (10:25)
--- NOTE | 2016-09-06 10:27 | PCM.DIMED ---
Discharge Instructions Date of Service Sep 06, 2016 Dates of Hospitalization Sep 02, 2016 at 00:01 Discharge Diagnosis Discharge Diagnosis # Acute NSTEMI. Present on admission. # Acute dyspnea. Present on admission. Resolved - Uncertain etiology. Possibly related to NSTEMI noted above, or could be related to stress and anxiety # Acute catatonia and psychomotor retardation. Present on admission. improving - history of depression with psychotic features versus bipolar disorder depressed with psychotic features, as well as an anxiety disorder # Acute leukocytosis. Present on admission. Resolved - No obvious signs of infection # Dyslipidemia, chronic. Present on admission # Hypertension, chronic. Present on admission. stable Diet Low fat, Low Sodium, Heart Healthy Activity No restrictions Patient Instructions Follow-up plan 1. Followup with [facility] office on MondayOctober 07 at 1:45 pm their office number is [phone]. [facility] [address] [place] [address] [address] [place] [address] 2. Followup with primary care provider in 1-2 weeks. Geronimo Beaulieu Sep 06, 2016 10:27
[2016-09-06] MEDS ORDERED: Alum-Mag Hydrox-Simeth 30 mL Suspension PO PRN (11:30)
[2016-09-06] MEDS ORDERED: Magnesium Hydroxide 10 mL Oral Concentration PO PRN (11:30)
[2016-09-06] MEDS ORDERED: Benzocaine-Menthol Lozenge 2/Pkg PO PRN (11:30)
[2016-09-06] MEDS ORDERED: LORazepam 1 mg Tablet PO PRN (11:30)
--- NOTE | 2016-09-06 13:30 | NUR ---
SW spoke to [facility] who states that bed available today. Rn provided Rn to Rn report. Patient to be transferred to inpt unit at 12:30. No other needs. SW to follow as further needs arise PLAN: Inpt [facility] today Mariaelena TERRAZAS
--- NOTE | 2016-09-06 15:18 | PCM.DC.MED ---
Discharge Summary Date of Service Sep 06, 2016 Dates of Hospitalization Date of Hospital Admission Sep 02, 2016 at 00:01 Date of Discharge: Sep 06, 2016 Providers: Admitting Physician: Aden Leyva MD Primary Care Physician: Other,Physician Attending Physician: Aden Leyva MD Diagnosis at Time of Discharge Diagnosis at Time of Discharge # Acute NSTEMI. Present on admission. # Acute dyspnea. Present on admission. Resolved - Uncertain etiology. Possibly related to NSTEMI noted above, or could be related to stress and anxiety # Acute catatonia and psychomotor retardation. Present on admission. improving - history of depression with psychotic features versus bipolar disorder depressed with psychotic features, as well as an anxiety disorder # Acute leukocytosis. Present on admission. Resolved - No obvious signs of infection # Dyslipidemia, chronic. Present on admission # Hypertension, chronic. Present on admission. stable Consultations 1. Cardiology 2. Psychiatry Procedures XRay, CTs & MRIs Date of Service: 09/01/162055 PROCEDURE: CT BRAIN WITHOUT CONTRAST ([id number]) INDICATIONS: 61 year-old male with altered mental status. TECHNIQUE: Noncontrast 4.5 mm thick angled axial sections acquired from the foramen magnum to the vertex, with coronal reformats. COMPARISON: [facility], CT, BRAIN W/O CONTRAST, 08/18/2010, 14:57. [facility], CT, BRAIN W/O CONTRAST, 02/21/2006, 13:05. FINDINGS: Image quality: Excellent. CSF spaces: Basal cisterns are patent. No extra-axial fluid collections. Ventricles are normal in size and shape. Brain: No midline shift. No intracranial masses or hemorrhage. Cadena-white matter interface is normal. Skull and face: Calvarium and visualized facial bones are intact, without suspicious lesions. Sinuses: Visualized sinuses and mastoids are clear. IMPRESSION: No acute intracranial abnormalities. Dictated by: Nick Feliciano M.D. on 09/01/2016 at 21:07 Approved by: Nick Feliciano M.D. on 09/01/2016 at 21:08 ---- Date of Service: 09/01/162045 PROCEDURE: CT ANGIO CHEST PULMONARY EMBOLISM ([id number]) IMPRESSION: 1. No central pulmonary embolism. 2. Mild coronary artery calcification consistent with atherosclerosis. 3. Cholelithiasis. 4. A 1.6 cm cyst in the superior pole of the left kidney. No significant discrepancy with the shift coordinator radiology preliminary report. Dictated by: Colin Zepeda M.D. on 09/02/2016 at 9:27 Transcribed by: TYRONE on 09/02/2016 at 10:00 Approved by: Colin Zepeda M.D. on 09/02/2016 at 15:25 Cardiac Echo Impression Date of Service: 09/02/16 0231 Echocardiogram Report Interpretation Summary Left ventricular wall thickness is mildly increased. The left ventricular ejection fraction is grossly normal.There are no obvious focal wall motion abnormalities noted but poor endocardial definition reduces the sensitivity for the detection of such. Assessment of diastolic parameters indicates normal left ventricular diastolic function and normal filling pressures. The right ventricle grossly appears normal in size with probable normal systolic function. Both atria are normal in size. There is no significant valvular heart disease. The aortic root is normal size. Reading Physician:PM Brief History 61-year-old male with hypertension, major depressive disorder with history of suicidal ideation presenting with shortness of breath and admitted for NSTEMI. Hospital Course # Acute NSTEMI. Present on admission. currently without CP - appreciate cardiology consult. will f/u w/ recs - Continue aspirin 81 mg daily - Continue atorvastatin 10 mg at bedtime. - Continue Metoprolol tartrate 25 mg twice a day - per discussion with Dr. Pond on 09/04/16 started pt on Imdur 30mg daily with plan f/u w/ cardiology in 2-4 weeks - No cath for now # Acute dyspnea. Present on admission. Resolved - Essentially resolved at time of visit - Uncertain etiology. Possibly related to NSTEMI noted above, or could be related to stress and anxiety # Acute catatonia and psychomotor retardation. Present on admission. improving - history of depression with psychotic features versus bipolar disorder depressed with psychotic features, as well as an anxiety disorder - appreciate psychiatry consult. will f/u w/ recs - Lorazepam 1 mg 3 times daily to address catatonia. - Aripiprazole 15 mg daily. - Fluoxetine 10 mg daily. per discussion with cardiology may increase fluoxetine to 20mg daily. - pt assessed by MADELEINE and per recommendations will be transferred to inpatient psychiatric unit. patient himself is in agreement. # Acute leukocytosis. Present on admission. Resolved - No obvious signs of infection # Dyslipidemia, chronic. Present on admission - Continue statin # Hypertension, chronic. Present on admission - cardiac meds as noted above Dispo: inpatient psych. by day of d/c lungs CTA bilat. CV: RRR. pt note ambulating without difficulty Exam Vital Signs (Last) Date Time Temp Pulse Resp B/P Pulse Ox O2 Delivery O2 Flow Rate FiO2 09/06/16 10:15 89 09/06/16 10:15 36.8 18 124/79 94 Room Air 09/02/16 06:14 1.00 Test 09/01/16 20:00 09/02/16 00:32 09/02/16 02:08 09/03/16 08:50 Prothrombin Time 10.6sec (8.1-12.5) Prothromb Time International Ratio 0.99ratio D-Dimer 0.8mg/L (<0.50) Magnesium Level 2.1mg/dL (1.6-2.6) Pro-B-Type Natriuretic Peptide 867.8pg/mL (0-210) Thyroid Stimulating Hormone (TSH) 1.240uIU/mL (0.450-4.500) Urine Color Yellow (YELLOW) Urine Appearance Clear (CLEAR,HAZY) Urine pH 5.0 (5.0-8.0) Urine Specific [place] 1.020 (1.003-1.035) Urine Protein Negativemg/dL (NEG,TRACE) Urine Glucose (UA) Negativemg/dL (NEGATIVE) Urine Ketones 40mg/dL (NEGATIVE) Urine Occult Blood Large (NEGATIVE) Urine Nitrite Negative (NEGATIVE) Urine Bilirubin Negative (NEGATIVE) Urine Urobilinogen Normalmg/dL (NORMAL) Urine Leukocyte Esterase Negative (NEGATIVE) Urine RBC 11-50/hpf (0-2) Urine WBC 0-5/hpf (0-5) Urine Epithelial Cells Occasional/hpf (NONE-MOD) Urine Crystals None seen (NONE SEEN) Urine Bacteria Few/hpf (NONE-FEW) Urine Hyaline Casts Occasional/lpf (NONE) Urine Granular Casts Rare (NONE SEEN) Urine Waxy Casts None seen (NONE SEEN) Urine Red Blood Cell Casts None seen (NONE SEEN) Urine White Blood Cell Casts Nn (NONE SEEN) Urine Mucus Present (None Seen) Urine Trichomonas None seen (NONE SEEN) Urine Yeast None (NONE SEEN) Urinalysis Comment None Urine Culture Reflexed Not indicated Hold Urine Received (Received) Urine Opiates Screen Negative Urine Methadone Screen Negative Urine Barbiturates Screen Negative Urine Amphetamines Screen Negative Urine Benzodiazepines Screen Positive Urine Cocaine Metabolite Screen Negative Urine Cannabinoids Screen Negative Neutrophils (%) (Auto) 72.8% (40-74) Lymphocytes (%) (Auto) 12.1% (14-46) Monocytes (%) (Auto) 14.5% (4-12) Eosinophils (%) (Auto) 0.2% (0-5) Basophils (%) (Auto) 0.2% (0-3) White Blood Count 6.2th/mm3 (3.8-10.1) Red Blood Count 4.92mil/mm3 (4.40-5.80) Mean Corpuscular Volume 83.3fL (81-100) Mean Corpuscular Hemoglobin 29.5pg (27.0-35.0) Mean Corpuscular Hemoglobin Concent 35.4% (32.0-37.0) Red Cell Distribution Width 13.0% (12.3-15.4) Platelet Count 142bil/L (150-400) Test 09/03/16 09:30 09/04/16 13:33 09/06/16 05:25 Sodium Level 139mEq/L (134-144) Potassium Level 4.4mEq/L (3.5-5.2) Chloride Level 103mEq/L (97-108) Carbon Dioxide Level 20mmol/L (18-29) Blood Urea Nitrogen 16mg/dL (8-27) Creatinine 0.79mg/dL (0.76-1.27) Estimat Glomerular Filtration Rate 106mL/min (>59) Glucose Level 107mg/dL (60-99) Calcium Level 8.4mg/dL (8.5-10.1) Total Bilirubin 0.5mg/dL (0.0-1.2) Aspartate Amino Transf (AST/SGOT) 56U/L (0-50) Alanine Aminotransferase (ALT/SGPT) 30U/L (0-44) Alkaline Phosphatase 67U/L (25-160) Troponin T 0.207ug/L (0.0-0.011) Total Protein 5.4g/dL (6.4-8.4) Albumin 3.6g/dL (3.4-5.0) Activated Partial Thromboplast Time 51.9sec (22.8-33.0) Hemoglobin 14.2g/dL (13.8-17.2) Hematocrit 41.1% (41.0-50.0) Discharge Medications Discharge Medications Aripiprazole (Aripiprazole) 5 Mg Tablet 5 MG PO DAILY (Reported) Aripiprazole (Abilify) 15 Mg Tablet 15 MG PO DAILY Prescribed by: GERONIMO VEGA MD Aspirin (Aspirin) 81 Mg Tablet 81 MG PO DAILY (Reported) Atorvastatin Calcium (Atorvastatin Calcium) 10 Mg Tablet 10 MG PO HS Prescribed by: GERONIMO VEGA MD Fluoxetine (Fluoxetine) 20 Mg Capsule 40 MG PO HS (Reported) Fluoxetine (Fluoxetine) 20 Mg Capsule 20 MG PO DAILY Prescribed by: GERONIMO VEGA MD Furosemide (Lasix) 20 Mg Tablet 20 MG PO DAILY Prescribed by: SHAYY MISHRA MD Isosorbide MN ER (Isosorbide MN ER) 30 Mg Tab.er.24h 30 MG PO 0730 Prescribed by: GERONIMO VEGA MD Lisinopril (Lisinopril) 2.5 Mg Tablet 2.5 MG PO DAILY (Reported) Lorazepam (Ativan) 1 Mg Tablet 1 MG PO TID Prescribed by: GERONIMO VEGA MD Metoprolol Succinate ER (Toprol XL) 25 Mg Tablet.er 12.5 MG PO DAILY Prescribed by: SHAYY MISHRA MD Metoprolol Tartrate (Metoprolol Tartrate) 25 Mg Tablet 25 MG PO BID Prescribed by: GERONIMO VEGA MD Simvastatin (Zocor) 40 Mg Tablet 40 MG PO HS Prescribed by: SHAYY MISHRA MD Tamsulosin (Flomax) 0.4 Mg Capsule 0.4 MG PO QPM (Reported) As needed Hydrocortisone (Anti-Itch) 1 % Lotion 1 APPLIC TP BID PRN PRN For Itching ( Reported) apply twice daily as needed for itchy skin Nitroglycerin SL (Nitroglycerin SL) 0.4 Mg Tab.subl 0.4 MG SL Q5MIN PRN PRN For Chest Pain (Reported) 1 tab under the tongue every 5 minutes as needed for chest pain, after 3rd tab call 911 Nystatin (Nystatin) 60 Applic/15 Gm Cream 1 APPLIC TOP BID PRN PRN rash ( Reported) apply small ammount to itchy skin twice daily as needed Followup Plan Disposition: inpatient psych Follow-up plan 1. Followup with [facility] Cardiology office on MondayOctober 07 at 1:45 pm their office number is [phone]. [facility] [address] [place] [address] [address] [place] [address] 2. Followup with primary care provider in 1-2 weeks. Discharge Diet: Low fat, Low Sodium, Heart Healthy Discharge Activity: No restrictions Time spent 30 min Geronimo Vega Sep 06, 2016 15:18
--- NOTE | 2016-09-06 18:01 | NUR ---
Nursing: Admission and day shift: Trae arrived on unit in accompanied by transport staff. He was able to ambulate without difficulty. He participated in the admission interview with chart writer but was very slow to answer questions. He answered several questions with "I don't know". Declined to sign two forms: consent for treatment and that he read and understood the involuntary pt rights. Stated"I don't understand. He is alert and oriented. Rated suicidality at "None", depression and anxiety at medium. States he has chronic low back pain. At time of admission it was 09/30. Physical: Admits to "angina, constipation, and shortness of breath" as physical problems. Pt's supply of nitroglycerine pills that came to unit with him are in med capacitor inspector med room. He has cardiac prescriptions for him to take at discharge in the chart. After admission, pt rested on bed during the afternoon. At dinner as he sat in the DR eating, when approached by chart writer, he responded without such a delay. A: Profoundly Depressed. P: Continue to assess. [place] to unit and encourage participation.
--- NOTE | 2016-09-06 18:21 | NUR ---
Observations [id number] Pt arrived on unit at 12:40. Pt has flat affect, and spent much of his afternoon sleeping. Pt is very slow with responses. He did not participate in groups. Pt ate dinner and returned to room, not spending time in the common area. He did use the phone a few times. He was observed every 15 minutes of shift as directed.
[2016-09-06 18:28] VITALS: BP 135/78; PULSE 86; RESP 16
--- NOTE | 2016-09-07 02:48 | NUR ---
Observations 1900 to 0700 Pt was in bed when my shift started and was there almost the entire night. Pt came out briefly to get his meds and then went right back to his room. Pt first appeared asleep at 19:45 and was observed every 15 minutes through the night as directed.
--- NOTE | 2016-09-07 05:44 | NUR ---
nursing, nights, s/o- has appeared to sleep after 1945 during q 15 minute assessments. a- no apparent distress. Speech latent, comprehension slow and linear. p- monitor behavior/emotional state, quality, times and amount of sleep, use and effect of medication
[2016-09-07] MEDS: Isosorbide Mononitrate 30 mg ER24 Tablet PO SCH (08:04)
[2016-09-07] MEDS: LORazepam 1 mg Tablet PO SCH ×4 (08:05→20:15)
[2016-09-07 11:22] VITALS: BP 128/83; PULSE 83; RESP 16
--- NOTE | 2016-09-07 12:03 | PCM.HPPSYC ---
Mental Health [facility] Date of Service Sep 07, 2016 Admission Date/Time Sep 02, 2016 at 00:01 Reason for Admission The patient is referred to psychiatry due to presentation of catatonia. Admission Status: Involuntary (Gravely disabled) Source of Information: Patient Interview, Chart Review, Clinical Materials Accompanying, Observation Chief Complaint I want to go home History of Present Illness I met with Trae and reviewed his course and chart records for a 60 minute evaluation. I had followed Trae also he was on the medical floor being treated for a myocardial infarction. He was unable to provide any meaningful current history of present illness but per chart review his family reported that he was doing reasonably well in the few days prior to his myocardial infarction. On the medical unit he was in a near catatonic state for several days. He had a very difficult time processing information about his medical condition or medical treatments. He was beginning to show some improvement while on the medical floor. He was admitted to the medical floor from 09/02/2016 until 09/06/2016. He has been recently hospitalized on our Mental Health unit (in February 2005, January 2006, July 2010 and November 2013) . Please refer to those summaries for past psychosocial history. He has responded in the past to Geodon and Amber. He has been treated as an outpatient with aripiprazole 30 mg and fluoxetine 20 mg daily. On his admission today he is more alert and was able to give me a recent history. He is now aware that he had a myocardial infarction. He had not been able to communicate this to me while on the medical floor He still seems to be suffering from a rather severe depression with impairment in mood and a slowing of cognition. He consistently denied suicidal ideation plan or intent Presenting Symptoms: Mood (Days), Depression (Days), with Psychotic Features ( Days) Vegetative Functioning: Sleep (Increased), Appetite (Decreased), Energy ( Decreased), Libido (Decreased) Allergies Coded Allergies: clopidogrel (Verified Allergy, Intermediate, 12/05/13) Medical record quetiapine (Verified Allergy, Intermediate, 12/05/13) primary physician medical record rosuvastatin (Verified Allergy, Intermediate, 12/05/13) medical record simvastatin (Verified Allergy, Intermediate, 12/05/13) primary physician medical record codeine (Verified Allergy, Mild, 05/19/09) lisinopril (Verified Adverse Reaction, Severe, 12/05/13) Medical record Home Medications Home Medications Aripiprazole (Aripiprazole) 5 Mg Tablet 5 MG PO DAILY Last Taken: Unknown Dose on Unknown Date & Time Aripiprazole (Abilify) 15 Mg Tablet 15 MG PO DAILY Aspirin (Aspirin) 81 Mg Tablet 81 MG PO DAILY Last Taken: Unknown Dose on Unknown Date & Time Atorvastatin Calcium ( Atorvastatin Calcium) 10 Mg Tablet 10 MG PO HS Fluoxetine (Fluoxetine) 20 Mg Capsule 40 MG PO HS Last Taken: Unknown Dose on Unknown Date & Time Fluoxetine (Fluoxetine) 20 Mg Capsule 20 MG PO DAILY Furosemide (Lasix) 20 Mg Tablet 20 MG PO DAILY Last Taken: Unknown Dose on Unknown Date & Time Isosorbide MN ER ( Isosorbide MN ER) 30 Mg Tab.er.24h 30 MG PO 0730 Lisinopril (Lisinopril) 2.5 Mg Tablet 2.5 MG PO DAILY Last Taken: Unknown Dose on Unknown Date & Time Lorazepam (Ativan) 1 Mg Tablet 1 MG PO TID Metoprolol Succinate ER (Toprol XL) 25 Mg Tablet.er 12.5 MG PO DAILY Last Taken: Unknown Dose on Unknown Date & Time Metoprolol Tartrate ( Metoprolol Tartrate) 25 Mg Tablet 25 MG PO BID Simvastatin (Zocor) 40 Mg Tablet 40 MG PO HS Last Taken: Unknown Dose on Unknown Date & Time Tamsulosin (Flomax) 0.4 Mg Capsule 0.4 MG PO QPM Last Taken: Unknown Dose on Unknown Date & Time Scheduled PRN Hydrocortisone (Anti-Itch) 1 % Lotion 1 APPLIC TP BID PRN PRN For Itching apply twice daily as needed for itchy skin Last Taken: Unknown Dose on Unknown Date & Time Nitroglycerin SL ( Nitroglycerin SL) 0.4 Mg Tab.subl 0.4 MG SL Q5MIN PRN PRN For Chest Pain 1 tab under the tongue every 5 minutes as needed for chest pain, after 3rd tab call 911 Last Taken: Unknown Dose on Unknown Date & Time Nystatin (Nystatin) 60 Applic/15 Gm Cream 1 APPLIC TOP BID PRN PRN rash apply small ammount to itchy skin twice daily as needed Last Taken: Unknown Dose on Unknown Date & Time Discontinued Medications ([Aspirin]) 81 MG TAB.CHEW 81 MG PO DAILY Aripiprazole (Abilify) 15 Mg Tablet 30 MG PO DAILY Cholecalciferol (Vitamin D3) 1,000 Unit Tablet 2,000 UNIT PO DAILY PRN PRN supplement vitamin D deficiency Fluoxetine (Fluoxetine) 20 Mg Capsule 20 MG PO DAILY depression Lisinopril (Zestril) 5 Mg Tablet 5 MG PO DAILY Prasugrel HCl (Effient) 10 Mg Tablet 5 MG PO DAILY Psychiatric Treatment History In-patient: As noted above, therefore psychiatric hospitalizations at [facility] with the most recent in November 2013. Outpatient treatment: Unknown. Psychological History: Depression, Psychosis Past Suicide Attempts Relevant History Unknown Hx non-suicidal Self-Injury Relevant History Relevant History Details: Past Medical History Past Medical/Surgical History Heart Disease Current and Past Current/Past: Cardiac condition with 5 stents. HTN PAST MEDICAL PROBLEMS: Non ST-segment elevation myocardial infarction, acute dyspnea resolved, acute leukocytosis improving, dyslipidemia chronic, hypertension chronic. Problem with Elimination: Constipation Type of Contraceptive: not discussed Menstrual Period: na Currently ?: No Hx Hospitalization: Yes Hx Surgeries: No (unknown) Hx Anesthesia Reactions: Yes ("almost ") Past Social History Family: Single Living Arrangement: [facility] Review of Systems Eyes: Denies: Blurred Vision, Conjunctive Inflammation, Double Vision, Eyelid Inflammation, Other, Pain, Pigmentosa, Redness, Retinitis, Vision Changes Cardiovascular: Denies: Chest Pain, Edema, Lt Headedness, Orthopnea, Other, Palpitations, Paroxysmal Noc. Dyspnea Respiratory: Denies: Cough, Hemoptysis, Other, Pleuritic Chest Pain, SOB with Exertion, Shortness of Breath, Sputum, Wheezing Gastrointestinal: Denies: Abdominal Pain, Change in Appetite, Constipation, Diarrhea, Heartburn, Hematochezia, Melena, Nausea, Other, Use of Laxatives, Vomiting Mental Status Exam Vital Signs Vital Signs Date Time Temp Pulse Resp B/P Pulse Ox O2 Delivery O2 Flow Rate FiO2 09/07/16 11:22 36.8 83 16 128/83 Appearance: Unkept Attitude: Cooperative, Guarded Behavior: Stereotypic movements (latent, still with some catatonic features) Affect: Restricted, Blunted, Flat Mood: Dysthymic, Depressed Thought Process/Associations: Goal Directed Speech Production: Paucity Speech Rate: Lags/Latency Speech Articulation: Normal Thought Content: Negativistic Danger to Self/Suicidal Ideati: None Danger to Others: None Hallucinations: Auditory (Denies), Visual (Denies) Consciousness: Alert, Lethargic, Other (resolving catatonia) Orientation: Person, Place Memory: Short Term Memory (Impaired) Estimate Intellectual Function: Average Basis for IQ estimate: Word use/vocabulary, Educational history Attention/Concentration & Cogn: Impaired Insight: Limited Judgement: Poor Result Diagram: 09/06/16 0525 09/03/16 5673 Mental Health Plan The patient is a 61-year-old male with a history of depression with psychotic features who presented initially with a myocardial infarction and in a near catatonic state. He was treated in the intensive care unit for his myocardial infarction. The catatonia appears improved, but the patient remains quite latent and I believe gravely disabled. The patient was denying a need for additional treatment, and while on the medical unit was requesting to go home . Given his impaired thought Processing and recent depression with catatonia a involuntary hold was sought and he is currently on a 72 hour involuntary treatment hold based on grave disability. I believe he would benefit from a 5-7 day on our psych unit with both psychosocial rehabilitation and additional adjustment of his medications. [place] AXIS I: Major depressive disorder with psychotic features AXIS II: Deferred. AXIS III: See past medical history. AXIS IV: Unknown. AXIS V: 30. Medications Abilify 15 mg daily Prozac 20 mg daily Ativan 1 mg 3 times a day Aspirin 81 daily Atorvastatin calcium 10 mg at bedtime Lasix 20 mg daily Isosorbide MN ER 30 mg daily Metoprolol 25 mg twice a day Treatments Patient will be provided with a high degree of safety through the structure and active adult engagement. We will focus on developing improved coping skills and identifying stressors that may have led to current episode. We will attempt to: Integrate into therapeutic groups, milieu and individual therapy. Maintain in a closely monitored and structured unit Provide low-stimulation environment Obtain collateral data to assist in treatment planning Assess degree of lability of affect and impulse control Complete safety plan Decrease frequency of relapse and need for re-hospitalization Denies thoughts of harm to self and/or others Establish a consistent sleep pattern Medication effective in stabilization of mood and/or thought process Reduce the risk of imminent harm to self and/or others by providing a safe environment Tolerates medication without side effects Patient will be on the following psychiatric medications: Abilify 15 mg daily Lorazepam 1 mg 3 times a day Prozac 20 mg daily Address patient's legal status Patient is on a 72 hour involuntary treatment hold. Patient will be given the opportunity to talk to her collection systems modeler and the complaint clerk on Monday Disposition: Patient likely to transition back to [facility] Aden Leyva MD Sep 07, 2016 12:03
--- NOTE | 2016-09-07 13:55 | NUR ---
Nursing Day Shift- S- "I feel about the same." (Pt's response to being asked how he was feeling now as compared to when he arrived at the hospital.) O- Pt. had slept 8.5 hours per shift report. He was awake for breakfast and attended community mtg. Pt. set a goal of showering and was able to meet it. He rated his depression as 5/10 and denied anxiety. He reported ongoing problems with his memory. Pt. has a speech delay and a flat demeanor. He denied thoughts of self harm. A- Depression with speech delay and memory concerns. P- Cont. TP.
--- NOTE | 2016-09-07 17:46 | NUR ---
[facility] Day Shift Pt maintained behavioral control throughout the shift. Pt affect appears flat, blunt. Pt appears isolative from staff and peers throughout the shift. Pt spends most of the shift resting/pacing in his room. Pt is appropriate with staff and peers when active on the unit, but is not social. Pt attended community in the AM, but did not attend group activities throughout the shift. Pt attended all meals and ate approx 100% of all meals.
--- NOTE | 2016-09-07 19:50 | NUR ---
Pt AAOx3, affect blunted, mood detached. Pt denies SI plan or intent, pt denies A/V H however is guarded and appears preoccupied with latent speech and thoughts. Pt spent majority of shift in bed, ate dinner in common area with peers with no engagement. Addendum: 09/07/16 at 2124 by RENEE BAHENA RN Pt med compliant, denies pain. No side effects of medication or medical issues reported or observed
--- NOTE | 2016-09-08 05:20 | NUR ---
nursing, nights, 11-7 s/o- has appeared to sleep after 2100 during q 15 minute assessments. a- no apparent distress. p- monitor behavior/emotional state, quality, times and amount of sleep, use and effect of medication. kerri
--- NOTE | 2016-09-08 06:47 | NUR ---
Observations 1900 to 0700 Pt was in bed when my shift started and was there almost the entire night. Pt came out briefly to get his meds, talk on the phone and then went right back to his room. Pt first appeared asleep at 21:00 and was observed every 15 minutes through the night as directed.
[2016-09-08] MEDS: Isosorbide Mononitrate 30 mg ER24 Tablet PO SCH (08:02)
[2016-09-08] MEDS: LORazepam 1 mg Tablet PO SCH ×3 (08:05→20:02)
--- NOTE | 2016-09-08 08:16 | PCM.PHAPRO ---
Progress I want to go home Jax Alberto Sep 08, 2016 08:16 1.18 1.26 1.57 2.10 0.08 0.31 0.53 1MG 1MG 1 MG 0.5 Jax Alberto Sep 08, 2016 08:16
[2016-09-08 09:01] VITALS: BP 138/91; PULSE 82; RESP 18
--- NOTE | 2016-09-08 11:35 | NUR ---
Nursing Day Shift- S/O- Pt. appeared asleep at the start of the day shift. He was awake and dressed for breakfast. Pt. continues to rate his depression as 5/10 and deny anxiety or suicidal thoughts. He has eaten well at meals, denied pain, and attended groups. Speech delay and slowed but steady gait continues. A- Slow improvement. P- Cont. BHTP.
--- NOTE | 2016-09-08 13:13 | PCM.PNPSY ---
Subjective Date of Service Sep 08, 2016 Subjective I spent 30 minutes both reviewing his treatment plan and providing supportive and educational psychotherapy. I spent more than 50% of the time counseling the patient. I reviewed the initial history and physical and psychiatric consult. I reviewed the Treatment plan and his options with the patient. I discussed options available including the potential risks, benefits and side effects. Trae reports that he wants to go home today. He struggled to identify how he is feeling or thinking. He was able to tell me that he did have a myocardial infarction however his responses were extremely latent. He has a history of depression and appears to continue to be in the middle of a major depressive episode. He denies depressive symptoms or suicidal ideation. He was able to identify that he takes aspirin every day. He was not able to identify his psychiatric medications or his blood pressure medications. Current Medications Mental Status Exam Vital Signs Vital Signs Date Time Temp Pulse Resp B/P Pulse Ox O2 Delivery O2 Flow Rate FiO2 09/08/16 09:01 36.2 82 18 138/91 Appearance: Neat/well groomed Attitude: Cooperative, Guarded Behavior: Stereotypic movements (latent, still with some catatonic features) Affect: Restricted, Blunted, Flat Mood: Dysthymic, Depressed Thought Process/Associations: Goal Directed Speech Production: Paucity Speech Rate: Lags/Latency Speech Articulation: Normal Thought Content: Negativistic Danger to Self/Suicidal Ideati: None Danger to Others: None Hallucinations: Auditory (Denies), Visual (Denies) Consciousness: Alert, Lethargic, Other (resolving catatonia) Orientation: Person, Place Memory: Short Term Memory (Impaired) Estimate Intellectual Function: Average Basis for IQ estimate: Word use/vocabulary, Educational history Attention/Concentration & Cogn: Impaired Insight: Limited Judgement: Poor Result Diagram: 09/08/16 0755 09/03/16 0930 Mental Health Plan The patient is a 61-year-old male with a history of depression with psychotic features who presented initially with a myocardial infarction and in a near catatonic state. He was treated in the intensive care unit for his myocardial infarction. The catatonia appears improved, but the patient remains quite latent and I believe gravely disabled. He is denying a need for additional treatment and is requesting to go home . Given his recent myocardial infarction , his impaired thought Processing and recent depression with catatonia I believe he needs more time on our unit. He denied medication side effects. He slept 8.75 hours. [place] AXIS I: Major depressive disorder with psychotic features AXIS II: Deferred. AXIS III: See past medical history. AXIS IV: Unknown. AXIS V: 35. Medications Abilify 15 mg daily Prozac 20 mg daily Ativan 1 mg 3 times a day Aspirin 81 daily Atorvastatin calcium 10 mg at bedtime Lasix 20 mg daily Isosorbide [place] ER 30 mg daily Metoprolol 25 mg twice a day Treatments Patient will be provided with a high degree of safety through the structure and active adult engagement. We will focus on developing improved coping skills and identifying stressors that may have led to current episode. We will attempt to: Integrate into therapeutic groups, milieu and individual therapy. Maintain in a closely monitored and structured unit Provide low-stimulation environment Obtain collateral data to assist in treatment planning Complete safety plan Decrease frequency of relapse and need for re-hospitalization Establish a consistent sleep pattern Medication effective in stabilization of mood and/or thought process Reduce the risk of imminent harm to self and/or others by providing a safe environment Tolerates medication without side effects Patient will be on the following psychiatric medications: Abilify 15 mg daily Lorazepam 1 mg 3 times a day Prozac 20 mg daily Address patient's legal status Patient is on a 72 hour involuntary treatment hold. Patient will be given the opportunity to talk to her aerial photograph interpreter and the production planning manager on Monday Disposition: Patient likely to transition back to [facility] Aden Leyva MD Sep 08, 2016 13:13
--- NOTE | 2016-09-08 18:27 | NUR ---
[facility] Day Shift Pt affect and behavior unchanged from previous shifts. Pt maintained behavioral control throughout the shift. Pt affect appears flat, blunt. Pt appears isolative from staff and peers throughout the shift. Pt spends most of the shift resting/pacing in his room. Pt is appropriate with staff and peers when active on the unit, but is not social. Pt attended community in the AM, but did not attend group activities throughout the shift. Pt attended all meals and ate approx 100% of all meals.
--- NOTE | 2016-09-08 19:04 | NUR ---
Resident Services Director/Counselor: S/O: Patient slept 8.75 hours last night as per staff. He denies S/I and H/I. He denies auditory and visual hallucinations. Depression is 0/10 and he did not rate anxiety. This science writer spoke with patient's PACT counselor, Carloz Elliott. Carloz will visit patient tomorrow to introduce his new counselor, Silvana Simpson. Patient has his own apartment at "[facility]." A: Patient is cooperative, latent speech, lethargic, guarded, blunted affect, depressed, poor judgment. P: Follow care plan, coordinate out-patient providers.
--- NOTE | 2016-09-08 21:07 | NUR ---
Nursing Note Evening shift 3pm to 11pm Pt more visible on the unit this shift, less seclusive to room, came out for dinner, sat with peers for a few minutes and colored, minimal interaction but more than previous shifts. Speech soft, latent and with minimal content but more engaged than yesterday. Cracked a smile on approach, sought out this selling underwriter during the shift to check what time his night time meds were due. Thoughts organized and linear, thought blocking still evident at times Denies SI, denies anxiety and denies A/VH. Pt reported he had been on abilify previously and it made his tongue move back and forth. Encouraged pt to inform the MD and notify staff if he has any EPS. Pt denies EPS at this time. Addendum: 09/08/16 at 2118 by RENEE BAHENA RN Amended: Links added.
--- NOTE | 2016-09-09 05:42 | NUR ---
nursing, nights, 11-7 s/o- has appeared to sleep after 2129 during q 15 minute assessments. a- no apparent distress. p- monitor behavior/emotional state, quality, times and amount of sleep, use and effect of medication. kerri
[2016-09-09] MEDS: Isosorbide Mononitrate 30 mg ER24 Tablet PO SCH (07:38)
[2016-09-09] MEDS: LORazepam 1 mg Tablet PO SCH (08:30)
[2016-09-09 09:05] VITALS: BP 130/89; PULSE 86; RESP 16
--- NOTE | 2016-09-09 10:24 | PCM.DIMED ---
Discharge Instructions Date of Service Sep 09, 2016 Dates of Hospitalization Sep 02, 2016 at 00:01 Discharge Diagnosis Discharge Diagnosis AXIS I: Major depressive disorder with psychotic features AXIS II: None AXIS III: # Acute NSTEMI. Present on admission. # Acute dyspnea. Present on admission. Resolved - Uncertain etiology. Possibly related to NSTEMI noted above, or could be related to stress and anxiety # Acute catatonia and psychomotor retardation. Present on admission. improving - history of depression with psychotic features versus bipolar disorder depressed with psychotic features, as well as an anxiety disorder Hypertension, chronic. Present on admission. stable AXIS IV: Unknown. AXIS V: 40. Medication Instructions I Strongly encouraged patient to follow up with outpatient care: 1-Recommended patient takes medication as prescribed and not alter this unless under the direct care of a provider. 2-Recommend client refrain from recreational drugs and alcohol while taking psychiatric medications. Abilify 15 mg daily Prozac 20 mg daily Ativan .5 mg 3 times a day Diet Low fat, Low Sodium, Heart Healthy Activity No restrictions Call your provider Fever or Chills Patient Instructions Follow-up plan 1. Followup with [facility] office on MondayOctober 07 at 1:45 pm their office number is [phone]. [facility] [address] [place] [id number] 2. Followup with primary care provider in 1-2 weeks. 3. Follow up with the [facility] health pact team on 09/12/2016 for case management and psychiatric medication management Follow-up with PCP in: 2 weeks Aden Leyva MD Sep 09, 2016 10:24
[2016-09-09] MEDS ORDERED: LORA-303 PO (10:26)
[2016-09-09] MEDS ORDERED: ARIP15TA2 PO (10:26)
[2016-09-09] MEDS ORDERED: FLUO20CA25 PO (10:26)
--- NOTE | 2016-09-09 11:23 | DIS ---
[address] [address] DISCHARGE SUMMARY PATIENT: TYRESE SANTILLAN : 1955 MR#: [id number] ADMIT: 09/02/2016 JOB ID: [id number] DIS: The client presented to the ED on September 01, 2016, was admitted to Internal Medicine on September 02, 2016 and was transferred to Psychiatry on September 06, 2016. IDENTIFICATION: The patient is a 61-year-old white male with a long history of struggling with major depression. He lives independently at the [facility] in [place]. He is followed by the [facility] PACT team. REASON FOR ADMISSION: The patient was initially admitted to the medical floor for a myocardial infarction. While he was being treated there, he was nearly catatonic with depression and fear. He was transferred to the psychiatric unit for stabilization. HISTORY OF PRESENT ILLNESS: The patient is a 61-year-old white male with a history of depression with psychotic features who presented initially with a myocardial infarction in a near catatonic state. After treatment in the intensive care unit, the catatonia was improved but he remained quite latent and unable to attend to activities of daily living. He was denying the need for additional treatment and was detained on an involuntary treatment hold and transferred to our unit for treatment given his degree of thought impairment in his processing and recent depression with catatonia. HOSPITAL COURSE: Client is admitted to our unit and was provided with a high degree of safety through the structure and active adult engagement he received here. We had him participate in one-to-one unit and group activities focused on improving coping skills, reality based thinking and ability to attend to activities of daily living. Client was given a combination of Abilify 15 mg daily and lorazepam 1 mg three times a day and Prozac 20 mg daily. With this regimen and therapy, he showed a gradual and steady improvement each day. Today he is requesting discharge. I have met with his PACT team as well as his brother who tells me that they will meet with him daily to make sure he gets his medication box set up. Client was continued on cardiac medications of aspirin, Lasix, isosorbide and metoprolol. MENTAL STATUS EXAMINATION: Client neatly dressed, calm and pleasant, good eye contact. Mood was euthymic. Affect was congruent with a flat affect. Thought process was concrete but otherwise logical and goal oriented. Thought content: Client talked about how he is going to take care of himself. He is going to go shopping to get some food. Insight and judgment improved. Reality testing intact. Competence to handle current stressors is nearly at baseline. Diagnosis: major depressive disorder recent [place] MEDICATIONS: 1. Abilify 50 mg daily. 2. Prozac 20 mg daily. 3. Ativan changed to 0.5 mg t.i.d. for one month, then discontinue. 4. Aspirin 81 mg daily. 5. Atorvastatin 10 mg h.s. 6. Lasix 20 daily. 7. Isosorbide MN ER 30 mg daily. 8. Metoprolol 25 mg twice a day. ACTIVITIES AND DIET: Heart healthy diet. FOLLOW UP APPOINTMENTS: 1. Client will followup with his primary care physician in two weeks. 2. Client to followup with [facility] October 07 at 1:45 p.m. at [facility] in [place]. 3. Client to followup with [facility] PACT team on Monday, September 12, 2016 for case management and to set up psychiatric management. PROGNOSIS: Good. MTDD
--- NOTE | 2016-09-09 11:40 | NUR ---
Nursing Discharge- Pt. was discharge to home today at 1140 after his 14 day MRO was declined by the court. The PACT team visited with the Pt. on the unit at 10ish, then his brother provided transportation home. Pt's medications were faxed to [facility] as the PACT team had requested. Pt. appeared pleased to be leaving. his speech remained delayed, but he seemed to slowly comprehend his medication and follow up plans. He reported he planned on using his car today to go to [employer] for groceries. Pt. was encouraged to allow his brother or the PACT team to help with that task until he was feeling "stronger." Pt. denied suicidal thoughts, hallucinations or anxiety. He left with his home medications and agreed to pass the "Old" bubble pacts to his brother or the PACT team. He denied possessing a firearm.
--- NOTE | 2016-09-09 18:33 | NUR ---
System Support Technician/Counselor: S/O: Patient slept 7.5 hours last night as per staff. He denies S/I and H/I. He denies auditory and visual hallucinations. Patient will return to his own apartment at "[facility] Out-patient appointments: Tian Gomez, PACT counselor, 09/10/16 at 10:00am and BIANCA Quinteros, PACT prescriber, 09/19/16 at 3:55pm. A: Patient is cooperative, flat affect, euthymic, depressed, improved judgment, improved insight. P: Follow care plan, coordinate out-patient providers.
== END 2016-09-09 11:40 | disposition home or self-care (01) | DRG 190 ==
LOC: SED 19:51 → MPC 09-02 00:01 → MHC 09-06 12:03
PROVIDERS: ADMIT Psychiatry & Neurology Psychiatry; ATTEND Hospitalist
DX: I21.4 Non-ST elevation (NSTEMI) myocardial infarction (principal); F32.3 Major depressive disorder, single episode, severe with psychotic features; F06.1 Catatonic disorder due to known physiological condition; I10 Essential (primary) hypertension; E78.5 Hyperlipidemia, unspecified; I25.10 Atherosclerotic heart disease of native coronary artery without angina pectoris; Z95.5 Presence of coronary angioplasty implant and graft; Z91.19 Patient's noncompliance with other medical treatment and regimen; Z88.8 Allergy status to other drugs, medicaments and biological substances